=== PATIENT | male | born 1935 | race Caucasian/White ===

== ENCOUNTER 2017-05-01 10:35 | Emergency (ER) | payer MEDICARE, OTHER ==
--- NOTE | 2017-05-01 11:10 | ER Document Report ---
ED Medical Screen (RME) - General Chief Complaint: Chest Pain Stated Complaint: ABNORMAL LABS Time Seen by Provider: 05/01/17 10:59 Notes: 81-year-old male patient history coronary artery disease with bypass grafting. Has an EF about 35%. Previously had been on Eliquis with intermittent atrial fibrillation. Patient normally eats his last meal the day between 1 PM and 3 PM and goes to bed about 8 PM. Last night after laying down he noted substernal and epigastric chest discomfort and bad burning. He reports he took 2 Tums. It eased off some. At one point he felt his heart beating fast suggesting atrial fib, it seemed to improve when he sat up and walked around the room. He laid back down and the symptoms returned, about 10 PM he took an aspirin. Again when he would get up and walk around the symptoms would get better. He fell asleep about midnight woke up at 3:00 and was feeling better at that time. Some point after that he had some shortness of breath which she repeats that he gets from time to time. He was sent here from his primary care provider's office for cardiac evaluation. I have greeted and performed a rapid initial assessment of this patient. A comprehensive ED assessment and evaluation of the patient, analysis of test results and completion of the medical decision making process will be conducted by additional ED providers. TRAVEL OUTSIDE OF THE [place] IN LAST 30 DAYS: No - Related Data Allergies/Adverse Reactions: No Known Allergies Allergy (Verified 01/27/14 14:38) Past Medical History - Social History Chew tobacco use (# tins/day): No Frequency of alcohol use: Occasional Drug Abuse: None - Past Medical History Cardiac Medical History: Reports: Hx Atrial Fibrillation, Hx Heart Attack, Hx Hypertension Renal/ Medical History: Denies: Hx Peritoneal Dialysis Past Surgical History: Reports: Hx Cardiac Catheterization, Hx Cardiac Surgery - 4 way bypass - Immunizations Hx Diphtheria, Pertussis, Tetanus Vaccination: No Physical Exam - Vital signs Vitals: Resp 05/01/17 10:51 Course - Vital Signs Vital signs: Temp Pulse Resp BP Pulse Ox 05/01/17 10:51
[2017-05-01 11:29] LABS: ABSOLUTE BASOPHILS # (AUTO) 0.1 10^3/uL (0.0-0.2); ABSOLUTE EOSINOPHILS # (AUTO) 0.1 10^3/uL (0.0-0.6); ABSOLUTE LYMPHOCYTES (AUTO) 1.2 10^3/uL (0.5-4.7); ABSOLUTE MONOCYTES (AUTO) 0.7 10^3/uL (0.1-1.4); ABSOLUTE NEUT (AUTO) 5.7 10^3/uL (1.7-8.2); BASOPHILS % (AUTO) 0.7 % (0-2); EOSINOPHILS % (AUTO) 1.8 % (0-6); HEMATOCRIT 38.9 % (37.9-51.0); HEMOGLOBIN 12.6 g/dL (13.5-17.0); MEAN CORPUSCULAR HEMOGLOBIN 30.6 pg (27.0-33.4); MEAN CORPUSCULAR HGB CONC 32.3 g/dL (32.0-36.0); MEAN CORPUSCULAR VOLUME 95 fl (80-97); MONOCYTES % (AUTO) 8.7 % (3-13); PLATELET COUNT 226 10^3/uL (150-450); RED CELL DISTRIBUTION WIDTH 14.3 % (11.5-14.0); SEGMENTED NEUTROPHILS % (AUTO) 73.8 % (42-78); TOTAL CELLS COUNTED % (AUTO) 100 %; WHITE BLOOD COUNT 7.8 10^3/uL (4.0-10.5)
--- NOTE | 2017-05-01 11:32 | ER Document Report ---
ED General - General Chief Complaint: Chest Pain Stated Complaint: ABNORMAL LABS Time Seen by Provider: 05/01/17 10:59 TRAVEL OUTSIDE OF THE [place] IN LAST 30 DAYS: No - HPI Notes: Patient is an 81-year-old male with a history of hypothyroidism, quadruple bypass, and stent placement approximately 5-8 years ago, congestive heart failure with an ejection fraction around 35%, intermittent paroxysmal A. fib ( no longer on eliquis-takes baby aspirin daily) presents to the ED complaining of an epigastric chest discomfort and burning last evening. Patient states that his pain was intermittent until about midnight. Patient states that he would feel his A. fib backed up and then he would walk around which should resolve all of his symptoms. Patient states that his symptoms totally resolved around 3 AM. Patient states that since then he has been asymptomatic has been feeling well. Patient went to his primary care provider who sent him to the ED for a cardiac workup for further evaluation. Patient states that he is able to walk to and from his car and around the hospital without any development of pain or dyspnea on exertion. Patient's PCM is [facility] JUAN Alexander. Patient states that he is otherwise eating and drinking without any difficulties. He is urinating normally and having normal bowel movements. Denies any headache, fever, head injury, neck pain, changes in vision/speech/ mentation/hearing, URI, sore throat, current chest pain, palpitations, syncope, cough, shortness of breath, wheeze, dyspnea, abdominal pain, nausea/vomiting/ diarrhea, urinary retention, dysuria, hematuria, loss of control of bowel or bladder, numbness/tingling, saddle anesthesia, muscle paralysis/weakness, or rash. - Related Data Allergies/Adverse Reactions: No Known Allergies Allergy (Verified 01/27/14 14:38) Past Medical History - Social History Smoking Status: Former Smoker Chew tobacco use (# tins/day): No Frequency of alcohol use: Occasional Drug Abuse: None Family History: Reviewed & Not Pertinent Patient has suicidal ideation: No Patient has homicidal ideation: No - Past Medical History Cardiac Medical History: Reports: Hx Atrial Fibrillation, Hx Heart Attack, Hx Hypertension Renal/ Medical History: Denies: Hx Peritoneal Dialysis Past Surgical History: Reports: Hx Cardiac Catheterization, Hx Cardiac Surgery - 4 way bypass - Immunizations Hx Diphtheria, Pertussis, Tetanus Vaccination: No Hx Pneumococcal Vaccination: 12/05/12 Review of Systems - Review of Systems Notes: REVIEW OF SYSTEMS: CONSTITUTIONAL : Denies fever, chills, or sweats. Denies recent illness. EENT: Denies eye, ear, throat, or mouth pain or symptoms. Denies nasal or sinus congestion or discharge. Denies throat, tongue, or mouth swelling or difficulty swallowing. CARDIOVASCULAR: see hpi. Denies current chest pain. Denies palpitations or racing or irregular heart beat. Denies ankle edema. RESPIRATORY: Denies cough, cold, or chest congestion. Denies shortness of breath, difficulty breathing, or wheezing. GASTROINTESTINAL: Denies abdominal pain or distention. Denies nausea, vomiting , or diarrhea. Denies blood in vomitus, stools, or per rectum. Denies black, tarry stools. Denies constipation. GENITOURINARY: Denies difficulty urinating, painful urination, burning, frequency, blood in urine, or discharge. MUSCULOSKELETAL: Denies back or neck pain or stiffness. Denies joint pain or swelling. SKIN: Denies rash, lesions or sores. NEUROLOGICAL: Denies confusion or altered mental status. Denies passing out or loss of consciousness. Denies dizziness or lightheadedness. Denies headache. Denies weakness or paralysis or loss of use of either side. Denies problems with gait or speech. Denies sensory loss, numbness, or tingling. Denies seizures. PSYCHIATRIC: Denies anxiety or stress. Denies depression, suicidal ideation, or homicidal ideation. ALL OTHER SYSTEMS REVIEWED AND NEGATIVE. Dictation was performed using [employer] voice recognition software Physical Exam - Vital signs Vitals: Resp 16 05/01/17 10:51 - Notes Notes: PHYSICAL EXAMINATION: GENERAL: Well-appearing, well-nourished and in no acute distress. A&Ox4. Answers questions appropriately. Appears very comfortable and speaks in full sentences. HEAD: Atraumatic, normocephalic. EYES: Pupils equal round and reactive to light, extraocular movements intact, sclera anicteric, conjunctiva are normal. ENT: Nares patent and without discharge. oropharynx clear without exudates. No tonsilar hypertrophy or erythema. Moist mucous membranes. NECK: Normal range of motion, supple without lymphadenopathy Chest: no flail chest. equal rise/fall. non-tender. LUNGS: Breath sounds clear to auscultation bilaterally and equal. No wheezes rales or rhonchi. HEART: Regular rate and rhythm without murmurs, rubs, gallops. ABDOMEN: Soft, nontender, nondistended abdomen. No guarding, no rebound. No masses appreciated. Normal bowel sounds present. No CVA tenderness bilaterally. Musculoskeletal: FROM to passive/active. Strength 5+/5. Ree neg. No calf erythema or swelling. Extremities: No cyanosis, clubbing, or edema b/l. Peripheral pulses 2+. Capillary refill less than 3 seconds. NEUROLOGICAL: Cranial nerves grossly intact. Normal speech, normal gait. Normal sensory, motor exams PSYCH: Normal mood, normal affect. SKIN: Warm, Dry, normal turgor, no rashes or lesions noted. Course - Re-evaluation Re-evalutation: 05/01/17 15:53 Patient is an afebrile, well-hydrated, 81-year-old male who presents the ED with chest pain not otherwise specified. Vitals are stable. PE is otherwise unremarkable. Patient has remained asymptomatic since 0300 this morning when he woke up. Patient states that he is ready to go home. His CBC, CMP, cardiac enzymes 2/EKG 2, thyroid panel were unremarkable for any acute pathology. Patient did have a mildly elevated BNP without cardiopulmonary effusion or any lower extremity edema. I did try to discuss with his primary care provider's office and they do not have any previous lab records of a BNP being drawn. Patient does have a heart score of 4. I did review this case with Dr. Angelo. Patient's chest x-ray did reveal chronic COPD changes that cannot exclude a pneumonia to the right lower lung base, but patient has not had any fever or cough/cold symptoms. Patient has not been tachycardic and his oxygen saturation has remained over 95% on room air. Overall, I would like the patient to be admitted for chest pain observation due to his moderate cardiac risk. I did review this thoroughly with the patient states that he does not want to be admitted and would rather go home. Patient states that he has a production consultant in [place] that he can notify and follow-up with. Patient is aware of the risks and benefits of going home including potential heart attack and . At this time, I have a lower suspicion for any ACS, PE, pneumothorax , pericarditis, dissection, respiratory compromise, severe dehydration, sepsis, meningitis, or other systemic emergent condition at this time. Patient is aware that his condition can change from initial presentation and he needs to monitor symptoms closely and seek medical attention for any acute changes. Pt understands the strict return precautions. Recommend conservative measures for symptoms. Recheck with your PCM in 3-5 days. Schedule follow-up with your production consultant and consider outpatient stress testing. Return to the ED with any worsening/concerning symptoms otherwise as reviewed in discharge. Patient is in agreement. - Vital Signs Vital signs: Temp Pulse Resp BP Pulse Ox 16 05/01/17 10:51 - Laboratory Result Diagrams: 05/01/17 11:14 05/01/17 11:14 Laboratory results interpreted by me: 05/01/17 05/01/17 05/01/17 11:14 11:14 11:14 RBC 4.10 L Hgb 12.6 L RDW 14.3 H BUN 23 H NT-Pro-B Natriuret Pep 5440 H Discharge - Discharge Clinical Impression: Chest pain, unspecified Qualifiers: Chest pain type: unspecified Qualified Code(s): R07.9 - Chest pain, unspecified Condition: Stable Disposition: HOME, SELF-CARE Instructions: Chest Pain of Unclear Cause ([facility]) Additional Instructions: Maintain adequate fluid and food intake Low sodium/fat diet Monitor blood pressure closely Take home medications as directed Recheck with your production consultant next week, and consider outpatient stress testing Recheck with your PCM in 3-5 days Return to the ED with any worsening symptoms and/or development of fever, headache, chest pain, palpitations, syncope, shortness of breath, trouble breathing, abdominal pain, n/v/d, blood in stool/urine, loss of control of bowel /bladder, urinary retention, muscle weakness/paralysis, numbness/tingling, or other worsening symptoms that are concerning to you. Referrals: KAY HEREDIA PA-C [Primary Care Provider] - Follow up in 3-5 days CARDIOLOGY [Provider Group] - Follow up in 1 week
[2017-05-01 11:45] LABS: ALANINE AMINOTRANSFERASE 30 U/L (21-72); ALKALINE PHOSPHATASE 91 U/L (38-126); ANION GAP 10 (5-19); ASPARTATE AMINO TRANSFERASE 23 U/L (17-59); BILIRUBIN,DIRECT 0.2 mg/dL (0.0-0.4); BILIRUBIN,TOTAL 0.5 mg/dL (0.2-1.3); BLOOD UREA NITROGEN 23 mg/dL (7-20); CALCIUM 9.8 mg/dL (8.4-10.2); CARBON DIOXIDE 25 mmol/L (22-30); CHLORIDE 102 mmol/L (98-107); CREATINE KINASE 92 U/L (55-170); GLUCOSE 100 mg/dL (75-110); POTASSIUM 4.9 mmol/L (3.6-5.0); SODIUM 137.3 mmol/L (137-145); TOTAL PROTEIN 6.7 g/dL (6.3-8.2)
[2017-05-01 11:57] LABS: CREATINE KINASE MB 2.24 ng/mL (<4.55); TROPONIN I 0.022 ng/mL
--- NOTE | 2017-05-01 12:16 | RADIOLOGY REPORT (SQ) ---
EXAM DESCRIPTION: CHEST SINGLE VIEW COMPLETED DATE/TIME: 05/01/2017 11:37 am REASON FOR STUDY: Chest pain, shortness of breath COMPARISON: Chest x-ray and chest CT dated 11/16/2015 EXAM PARAMETERS: NUMBER OF VIEWS: One view. TECHNIQUE: Single frontal radiographic view of the chest acquired. RADIATION DOSE: NA LIMITATIONS: None. FINDINGS: LUNGS AND PLEURA: COPD. Increased interstitial densities in the bases poorly visualized o n previous plain films although clearly present on CT. Component of pneumonia on the right cannot be excluded. Lungs are otherwise clear. No effusions. MEDIASTINUM AND HILAR STRUCTURES: No masses. Contour normal. HEART AND VASCULAR STRUCTURES: Mild cardiomegaly. No evidence of failure. BONES: No acute findings. Old right 1st rib fracture. HARDWARE: Status post midline sternotomy. OTHER: No other significant finding. IMPRESSION: 1. COPD with chronic interstitial changes in the bases. Component of pneumonia in the right base cannot be excluded. 2. Mild cardiomegaly. TECHNICAL DOCUMENTATION: JOB ID: [id number] [employer]- All Rights Reserved
[2017-05-01 12:44] LABS: FREE T3 2.86 pg/mL (2.77-5.27); FREE T4 (FREE THYROXINE) 1.82 ng/dL (0.78-2.19)
--- NOTE | 2017-05-01 12:46 | EKG REPORT ---
SEVERITY:- ABNORMAL ECG - SINUS RHYTHM NONSPECIFIC T ABNORMALITIES, ANT-LAT LEADS : Confirmed by: Bryanna Elena MD 01-May-2017 12:46:10
[2017-05-01 12:58] LABS: THYROID STIMULATING HORMONE 1.49 uIU/mL (0.47-4.68)
[2017-05-01 16:52] VITALS: BP 143/97
--- NOTE | 2017-05-03 11:55 | EKG REPORT ---
SEVERITY:- ABNORMAL ECG - SINUS RHYTHM SINUS PAUSE/ARREST W/ SUPRAVENTRICULAR ESCAPE BORDERLINE LEFT AXIS DEVIATION BORDERLINE T ABNORMALITIES, ANT-LAT LEADS PROLONGED QT INTERVAL : Confirmed by: Bryanna Elena MD 03-May-2017 11:54:48
== END 2017-05-01 16:52 | disposition home or self-care (01) ==
LOC: ER 10:35
DX: R07.9 Chest pain, unspecified (principal); I48.91 Unspecified atrial fibrillation; E03.9 Hypothyroidism, unspecified; J44.9 Chronic obstructive pulmonary disease, unspecified; Z95.1 Presence of aortocoronary bypass graft; I25.2 Old myocardial infarction; Z87.891 Personal history of nicotine dependence; Z79.82 Long term (current) use of aspirin
CPT/HCPCS: 36415; 71045; 80053; 82550; 82553; 83880; 84439; 84443; 84481; 84484; 85025; 93005; 93010; 99285

== ENCOUNTER 2017-09-10 13:00 | Observation (INO) | payer MEDICARE, OTHER ==
[2017-09-10] MEDS ORDERED: ASPIRIN 81 MG TABLET, CHEWABLE PO ONE (13:33)
--- NOTE | 2017-09-10 14:06 | RADIOLOGY REPORT (SQ) ---
EXAM DESCRIPTION: CHEST SINGLE VIEW COMPLETED DATE/TIME: 09/10/2017 1:55 pm REASON FOR STUDY: chest pain COMPARISON: 11/16/2015 EXAM PARAMETERS: NUMBER OF VIEWS: One view. TECHNIQUE: Single frontal radiographic view of the chest acquired. RADIATION DOSE: NA LIMITATIONS: None. FINDINGS: LUNGS AND PLEURA: Mild chronic interstitial changes are present. There is increased opaci fication in the right lung base. A small right pleural effusion is suggested. MEDIASTINUM AND HILAR STRUCTURES: No masses. Contour normal. HEART AND VASCULAR STRUCTURES: Heart size is borderline. There is no alber pulmonary edema. BONES: No acute findings. HARDWARE: Sternotomy wires. OTHER: No other significant finding. IMPRESSION: Borderline cardiomegaly without CHF. Right pleural effusion. Possible right lower lobe pneumonia. TECHNICAL DOCUMENTATION: JOB ID: [id number] [employer]- All Rights Reserved Reading location - IP/workstation name: [email or web address]
[2017-09-10 14:33] LABS: ABSOLUTE BASOPHILS # (AUTO) 0.1 10^3/uL (0.0-0.2); ABSOLUTE EOSINOPHILS # (AUTO) 0.3 10^3/uL (0.0-0.6); ABSOLUTE LYMPHOCYTES (AUTO) 1.2 10^3/uL (0.5-4.7); ABSOLUTE MONOCYTES (AUTO) 0.6 10^3/uL (0.1-1.4); ABSOLUTE NEUT (AUTO) 2.9 10^3/uL (1.7-8.2); BASOPHILS % (AUTO) 1.3 % (0-2); EOSINOPHILS % (AUTO) 5.5 % (0-6); HEMOGLOBIN 12.1 g/dL (13.5-17.0); LYMPHOCYTES % (AUTO) 23.9 % (13-45); MEAN CORPUSCULAR HEMOGLOBIN 31.1 pg (27.0-33.4); MEAN CORPUSCULAR HGB CONC 33.5 g/dL (32.0-36.0); MEAN CORPUSCULAR VOLUME 93 fl (80-97); MONOCYTES % (AUTO) 12.1 % (3-13); PLATELET COUNT 198 10^3/uL (150-450); RED BLOOD COUNT 3.89 10^6/uL (4.35-5.55); SEGMENTED NEUTROPHILS % (AUTO) 57.2 % (42-78); TOTAL CELLS COUNTED % (AUTO) 100 %
[2017-09-10 14:36] LABS: INTERNATIONAL RATION (INR) 1.33; PROTHROMBIN TIME 17.2 SEC (11.4-15.4)
[2017-09-10 14:52] LABS: ALANINE AMINOTRANSFERASE 23 U/L (21-72); ALBUMIN 3.7 g/dL (3.5-5.0); ALKALINE PHOSPHATASE 101 U/L (38-126); ANION GAP 10 (5-19); ASPARTATE AMINO TRANSFERASE 21 U/L (17-59); BILIRUBIN,DIRECT 0.3 mg/dL (0.0-0.4); BILIRUBIN,TOTAL 0.8 mg/dL (0.2-1.3); BLOOD UREA NITROGEN 19 mg/dL (7-20); CARBON DIOXIDE 26 mmol/L (22-30); CHLORIDE 103 mmol/L (98-107); CREATINE KINASE 56 U/L (55-170); GLUCOSE 102 mg/dL (75-110); POTASSIUM 4.7 mmol/L (3.6-5.0); SODIUM 138.9 mmol/L (137-145); TOTAL PROTEIN 6.5 g/dL (6.3-8.2)
[2017-09-10 15:06] LABS: CREATINE KINASE MB 1.04 ng/mL (<4.55)
[2017-09-10 15:07] LABS: TROPONIN I < 0.012 ng/mL
--- NOTE | 2017-09-10 15:50 | ER Document Report ---
ED Medical Screen (RME) - General Mode of Arrival: Ambulatory Information source: Patient TRAVEL OUTSIDE OF THE [place] IN LAST 30 DAYS: No <BENNETT FOSTER - Last Filed: 09/10/17 15:50> <MARIZOL KIMBROUGH - Last Filed: 09/10/17 21:34> - General Chief Complaint: Chest Pain Stated Complaint: CHEST PAINS Time Seen by Provider: 09/10/17 13:33 Notes: Patient is an 80-year-old male who presents to the emergency department today with complaints of chest pain. Patient was cardioverted on September 02 secondary to atrial fibrillation. Patient is on Eliquis for his atrial fibrillation. I have greeted and performed a rapid initial assessment of this patient. A comprehensive ED assessment and evaluation of the patient, analysis of test results, and completion of the medical decision making process will be conducted by additional ED providers. Review of systems: Constitutional: No symptoms reported EENT: No symptoms reported Cardiovascular: Chest pain Respiratory: No symptoms reported Gastrointestinal: No symptoms reported Genitourinary: No symptoms reported Musculoskeletal: No symptoms reported Skin: No symptoms reported Hematologic/Lymphatic: No symptoms reported Neurological/Psychological: No symptoms reported Yes All other systems reviewed and negative PHYSICAL EXAM GENERAL: Alert, interacts well. No acute distress. HEAD: Normocephalic, atraumatic. EYES: Pupils equal, round, and reactive to light. Extraocular movements intact. ENT: Oral mucosa moist, tongue midline. NECK: Full range of motion. Supple. Trachea midline. LUNGS: Clear to auscultation bilaterally, no wheezes, rales, or rhonchi. No respiratory distress. HEART: Regular rate and rhythm. No murmurs, gallops, or rubs. ABDOMEN: Soft, non-tender. Non-distended. Bowel sounds present in all 4 quadrants. No guarding, rigidity, or rebound. EXTREMITIES: Moves all 4 extremities spontaneously. No edema, radial and dorsalis pedis pulses 2/4 bilaterally. No cyanosis. NEUROLOGICAL: Alert and oriented x3. Normal speech. PSYCH: Normal affect, normal mood. SKIN: Warm, dry, normal turgor. No rashes or lesions noted. (BENNETT FOSTER) - Related Data Allergies/Adverse Reactions: warfarin [From Coumadin] Allergy (Verified 09/10/17 13:01) Past Medical History - Social History Chew tobacco use (# tins/day): No Frequency of alcohol use: Occasional - Past Medical History Cardiac Medical History: Reports: Hx Atrial Fibrillation, Hx Heart Attack, Hx Hypertension Renal/ Medical History: Denies: Hx Peritoneal Dialysis Past Surgical History: Reports: Hx Cardiac Catheterization, Hx Cardiac Surgery - 4 way bypass - Immunizations Hx Diphtheria, Pertussis, Tetanus Vaccination: No <BENNETT FOSTER - Last Filed: 09/10/17 15:50> - Vital signs Vitals: Temp Pulse Resp BP Pulse Ox 97.6 F 51 L 20 126/69 H 98 09/10/17 13:04 09/10/17 13:04 09/10/17 13:04 09/10/17 13:04 09/10/17 13:04 Course - Laboratory Result Diagrams: 09/10/17 14:06 09/10/17 14:06 <BENNETT FOSTER - Last Filed: 09/10/17 15:50> - Laboratory Result Diagrams: 09/10/17 14:06 09/10/17 14:06 <MARIZOL KIMBROUGH - Last Filed: 09/10/17 21:34> - Vital Signs Vital signs: Temp Pulse Resp BP Pulse Ox 97.6 F 51 L 19 156/97 H 98 09/10/17 13:04 09/10/17 13:04 09/10/17 19:02 09/10/17 19:02 09/10/17 19:01 - Laboratory Laboratory results interpreted by me: 09/10/17 09/10/17 14:06 14:06 RBC 3.89 L Hgb 12.1 L Hct 36.0 L PT 17.2 H Doctor's Discharge <BENNETT FOSTER - Last Filed: 09/10/17 15:50> <MARIZOL KIMBROUGH - Last Filed: 09/10/17 21:34> - Discharge Clinical Impression: Chest pain Condition: Stable Disposition: ADMITTED OBSERVATION Scribe Documentation - Scribe Written by Eric:: Eric Mack, 09/10/2017 1552 acting as scribe for :: Valentine <BENNETT FOSTER - Last Filed: 09/10/17 15:50>
--- NOTE | 2017-09-10 17:15 | ER Document Report ---
ED Cardiac - General Chief Complaint: Chest Pain Stated Complaint: CHEST PAINS Time Seen by Provider: 09/10/17 13:33 Mode of Arrival: Ambulatory Information source: Patient Notes: This is an 81-year-old man with a history of coronary artery disease (CABG in 2005), atrial fibrillation (status post cardioversion September 02) who presents to the emergency room with intermittent chest discomfort. The patient states he will experience a sudden severe nonradiating sharp pain in the left chest which lasts anywhere from 3 seconds to 30 seconds and then goes away. It is happened a few times. It was not associated with exertion. He did go to his bottom presser's office today and was referred here. The patient is concerned that his atrial fibrillation is coming back. He denies any exertional chest pain, shortness of breath, near syncope. TRAVEL OUTSIDE OF THE [place] IN LAST 30 DAYS: No - HPI Patient complains to provider of: denies: Chest pain, Chest tightness, Palpitations, Shortness of breath, Other Use of: denies: Alcohol, Amphetamines, Bath salts, Caffeine, Cocaine, Decongestants, Other Chest pain location: No: Substernal, Axillary, Back, Pleuritic, Under breast, Other Quality of pain: Dull Chest pain radiation location: denies: Left jaw, Left arm, Left shoulder, Right jaw, Right arm, Right shoulder, Back, Neck, None Severity now: None Severity at worst: Moderate Pain level currently: 0 Chest pain precipitating factors: At Rest Cardiac risk factors: Hx TX Positive cardiac history: Yes Associated symptoms: denies: Fatigue, Palpitations Exacerbated by: Denies Relieved by: Nothing Similar symptoms previously: Yes Recently seen / treated by doctor: Yes - Related Data Allergies/Adverse Reactions: warfarin [From Coumadin] Allergy (Verified 09/10/17 13:01) Past Medical History - General Information source: Patient - Social History Smoking Status: Never Smoker Cigarette use (# per day): No Chew tobacco use (# tins/day): No Frequency of alcohol use: Occasional Drug Abuse: None Lives with: Family Family History: Reviewed & Not Pertinent Patient has suicidal ideation: No Patient has homicidal ideation: No - Past Medical History Cardiac Medical History: Reports: Hx Atrial Fibrillation, Hx Heart Attack, Hx Hypertension Renal/ Medical History: Denies: Hx Peritoneal Dialysis Past Surgical History: Reports: Hx Cardiac Catheterization, Hx Cardiac Surgery - 4 way bypass - Immunizations Hx Diphtheria, Pertussis, Tetanus Vaccination: No Hx Pneumococcal Vaccination: 12/05/12 Review of Systems - Review of Systems Constitutional: denies: Chills, Fever EENT: No symptoms reported Cardiovascular: See HPI Respiratory: No symptoms reported Gastrointestinal: No symptoms reported Genitourinary: No symptoms reported Male Genitourinary: No symptoms reported Musculoskeletal: No symptoms reported Skin: No symptoms reported Hematologic/Lymphatic: No symptoms reported Neurological/Psychological: No symptoms reported Physical Exam - Vital signs Vitals: Temp Pulse Resp BP Pulse Ox 97.6 F 51 L 20 126/69 H 98 09/10/17 13:04 09/10/17 13:04 09/10/17 13:04 09/10/17 13:04 09/10/17 13:04 Notes: Physical exam: GENERAL: Well-appearing 81-year-old man, alert and oriented 3, no acute distress HEAD: Atraumatic, normocephalic. EYES: Pupils equal round and reactive to light, extraocular movements intact, sclera anicteric, conjunctiva are normal. ENT: TMs normal, nares patent, oropharynx clear without exudates. Moist mucous membranes. NECK: Normal range of motion, supple without obvious mass or JVD. LUNGS: Breath sounds clear to auscultation bilaterally and equal. No wheezes rales or rhonchi. HEART: Regular rate and rhythm without murmurs, rubs or gallops. ABDOMEN: Soft, normoactive bowel sounds. No tenderness to palpation. No guarding, no rebound. No masses appreciated. EXTREMITIES: Normal range of motion, no pitting or edema. No clubbing or cyanosis. NEUROLOGICAL: Cranial nerves II through XII grossly intact. Normal speech, moving all extremities. PSYCH: Normal mood, normal affect. SKIN: Warm, Dry, normal turgor, no rashes or lesions noted. Course - Vital Signs Vital signs: Temp Pulse Resp BP Pulse Ox 97.5 F 72 16 152/87 H 85 L 09/10/17 22:00 09/10/17 22:00 09/10/17 22:00 09/10/17 22:00 09/10/17 22:00 - Laboratory Result Diagrams: 09/10/17 14:06 09/10/17 14:06 Laboratory results interpreted by me: 09/10/17 09/10/17 14:06 14:06 RBC 3.89 L Hgb 12.1 L Hct 36.0 L PT 17.2 H - Diagnostic Test Radiology reviewed: Image reviewed, Reports reviewed - Chest x-ray shows borderline cardiomegaly without CHF. There is a small pleural effusion and there is a question of a possible infiltrate (patient does not have any symptoms of pneumonia or any clinical findings of pneumonia). - EKG Interpretation by Me Rate: Bradycardia Rhythm: NSR - EKG shows sinus bradycardia with a ventricular rate of 52, no acute ST-T wave changes. Patient does state that his heart rate is normally in the upper 50s. Discharge - Discharge Clinical Impression: Chest pain Condition: Stable Disposition: ADMITTED OBSERVATION Admitting Provider: Hospitalist Unit Admitted: Telemetry
[2017-09-10] MEDS ORDERED: ASPIRIN 81 MG TABLET, CHEWABLE ONE (17:39)
[2017-09-10] MEDS ORDERED: GLUCAGON,HUMAN RECOMB 1 MG INJ SUBCUT PRN (18:18)
[2017-09-10] MEDS ORDERED: DEXTROSE 40% GEL 15 GM TUBE PO PRN ×2 (18:18)
[2017-09-10] MEDS ORDERED: MAG HYDROX/AL HYDROX/SIMETH SUSP 30 ML UDCUP PO PRN (18:18)
[2017-09-10] MEDS ORDERED: ACETAMINOPHEN 325 MG TABLET PO PRN (18:18)
[2017-09-10] MEDS ORDERED: DEXTROSE 50%-WATER 25 GM/50 ML DISP.SYRIN IV PRN ×2 (18:18)
--- NOTE | 2017-09-10 18:42 | PDOC H&P ---
History of Present Illness Admission Date/PCP: 09/10/17 17:59 ADI ANGELES Patient complains of: Chest pain History of Present Illness: TIFFANIE JIMENEZ is a 81 year old male with known coronary artery disease status post CABG about 13 years ago. He had a cardioversion about 5 days ago. Starting yesterday he developed midsternal chest pain, possibly worse with exertion associated with shortness of breath. He went to his supervisor salvage's office who recommended that he come to the emergency department. Past Medical History Cardiac Medical History: Reports: Atrial Fibrillation - Status post cardioversion about 5 days ago, Coronary Artery Disease - Status post CABG about 13 years ago, Myocardial Infarction, Hypertension Past Surgical History Past Surgical History: Reports: Cardiac Catheterization, Coronary Artery Bypass Graft Social History Information Source: Patient Smoking Status: Never Smoker Frequency of Alcohol Use: Social Hx Recreational Drug Use: No Hx Prescription Drug Abuse: No - Advance Directive Resuscitation Status: Full Code Family History Family History: Reviewed & Not Pertinent Parental Family History Reviewed: Yes Children Family History Reviewed: No Sibling(s) Family History Reviewed.: No Medication/Allergy Home Medications: Amiodarone HCl [Pacerone] 100 mg PO DAILY 09/10/17 Apixaban [Eliquis 5 mg Tablet] 5 mg PO BID 09/10/17 Atorvastatin Calcium [Lipitor 80 mg Tablet] 80 mg PO QHS 09/10/17 Enalapril Maleate [Vasotec 2.5 Mg Tablet] 2.5 mg PO DAILY 09/10/17 Ferrous Sulfate [Iron] 325 mg PO DAILY 09/10/17 Magnesium Oxide [Magnesium] 400 mg PO DAILY 09/10/17 Metoprolol Tartrate [Lopressor 25 mg Tablet] 25 mg PO Q12 09/10/17 Multivitamin [Tab-A-Clarita] 1 tab PO DAILY 09/10/17 Allergies/Adverse Reactions: warfarin [From Coumadin] Allergy (Verified 09/10/17 13:01) Review of Systems All systems: reviewed and no additional remarkable complaints except as stated Physical Exam Vital Signs: Temp Pulse Resp BP Pulse Ox 97.6 F 51 L 20 126/69 H 99 09/10/17 13:04 09/10/17 13:04 09/10/17 13:04 09/10/17 13:04 09/10/17 13:33 General appearance: PRESENT: no acute distress Respiratory exam: PRESENT: clear to auscultation ramin Cardiovascular exam: PRESENT: RRR GI/Abdominal exam: PRESENT: soft Neurological exam: PRESENT: alert Psychiatric exam: PRESENT: appropriate affect Skin exam: PRESENT: warm Results Impressions: Chest X-Ray 09/10/17 13:33 IMPRESSION: Borderline cardiomegaly without CHF. Right pleural effusion. Possible right lower lobe pneumonia. Assessment & Plan - Diagnosis (1) Chest pain of uncertain etiology Is this a current diagnosis for this admission?: Yes Plan: Workup thus far has been negative. Will monitor on telemetry, get serial cardiac enzymes, put him in for a Lexiscan Cardiolite in the morning, and consult cardiology to see if they would like to do any other workup. (2) CAD (coronary artery disease) Is this a current diagnosis for this admission?: Yes Plan: History of CABG 13 years ago. Last stress test around 2 years ago. (3) Afib Is this a current diagnosis for this admission?: Yes Plan: Currently in sinus rhythm on amiodarone. Continue (4) Atrial fibrillation status post cardioversion Is this a current diagnosis for this admission?: Yes
[2017-09-10] MEDS ORDERED: ATORVASTATIN CALCIUM 80 MG TABLET PO SCH (22:00)
[2017-09-10] MEDS: FAMOTIDINE 20 MG TABLET PO SCH (22:07)
[2017-09-10] MEDS: APIXABAN 5 MG TABLET PO SCH (22:08)
[2017-09-10] MEDS: METOPROLOL TARTRATE 25 MG TABLET PO SCH (22:30)
--- NOTE | 2017-09-10 22:56 | PDOC CONSULTATION ---
Consultation Consult Date: 09/10/17 Attending physician:: DAPHNIE SANTOYO Consult reason:: CP History of Present Illness Admission Date/PCP: 09/10/17 17:59 ADI ANGELES Patient complains of: Chest pain History of Present Illness: TIFFANIE JIMENEZ is a 81 year old male with known coronary artery disease status post CABG about 13 years ago. He had a cardioversion about 5 days ago. Starting yesterday he developed midsternal chest pain, possibly worse with exertion associated with shortness of breath. He went to his hearing aid fitter's office who recommended that he come to the emergency department. This is reviewed and confirmed. Patient has noted some increased shortness of breath. He claims that he had a stent placed after his bypass surgery but subsequently did fine. He claims that he has an appointment to be seen by his primary care hearing aid fitter sometimes within the next 2 weeks. Patient denied having any recent stress test or echocardiogram. Past Medical History Cardiac Medical History: Reports: Atrial Fibrillation - Status post cardioversion about 5 days ago, Coronary Artery Disease - Status post CABG about 13 years ago, Myocardial Infarction, Hypertension Past Surgical History Past Surgical History: Reports: Cardiac Catheterization, Coronary Artery Bypass Graft, Coronary Stent Social History Information Source: Patient Smoking Status: Former Smoker Frequency of Alcohol Use: Social Hx Recreational Drug Use: No Hx Prescription Drug Abuse: No - Advance Directive Resuscitation Status: Full Code Surrogate healthcare decision maker:: Patient's is the surrogate decision-maker Family History Family History: Reviewed & Not Pertinent Parental Family History Reviewed: Yes Children Family History Reviewed: Yes Sibling(s) Family History Reviewed.: Yes - No family history of premature coronary artery disease or sudden cardiac in the immediate family members Medication/Allergy Home Medications: Amiodarone HCl [Pacerone 100 mg Tablet] 100 mg PO DAILY 09/10/17 Apixaban [Eliquis 5 mg Tablet] 5 mg PO BID 09/10/17 Atorvastatin Calcium [Lipitor 80 mg Tablet] 80 mg PO QHS 09/10/17 Enalapril Maleate [Vasotec 2.5 mg Tablet] 2.5 mg PO DAILY 09/10/17 Ferrous Sulfate [Iron] 325 mg PO DAILY 09/10/17 Magnesium Oxide [Magnesium] 400 mg PO DAILY 09/10/17 Metoprolol Tartrate [Lopressor 25 mg Tablet] 25 mg PO Q12 09/10/17 Multivitamin [Tab-A-Clarita] 1 tab PO DAILY 09/10/17 Allergies/Adverse Reactions: warfarin [From Coumadin] Allergy (Verified 09/10/17 13:01) Review of Systems Review of Systems: Please see history of present illness and past medical history as wall. Constitutional: No fever or chills reported. Head : No recent chronic headaches, recent head injury. Eyes: No recent eye pain, diplopia, redness, discharge, acute visual changes. Ears: No recent chronic ear pain, acute hearing loss, ear discharge. Oral cavity: No recent ulcerations, bleeding, oral cavity discomfort. Neck: No recent acute neck pain reported. Hematologic: No recent easy bruising or bleeding. Lymphatic: No recent lymph node enlargement reported. Cardiovascular system review: See history of present illness. Respiratory system review: No hemoptysis or blood clots in the lungs reported. Mild Shortness of breath on exertion Gastrointestinal system review: Negative for any recent acute hematemesis, melena. Genitourinary system review: No recent acute or chronic hematuria, flank pain, UTI etc. reported. Skin system review: Negative for any recent abnormal bruising, no rash, no pruritus reported. Neurologic: No prior history of strokes, mini strokes, seizure disorder. Psychologic: No history of major psychosis or major depression reported. Musculoskeletal: Minor aches and pains reported. No acute joint swelling reported. Endocrine: No recent polyuria, polydipsia, recent heat or cold intolerance. Physical Exam Vital Signs: Temp Pulse Resp BP Pulse Ox 97.6 F 51 L 19 156/97 H 98 09/10/17 13:04 09/10/17 13:04 09/10/17 19:02 09/10/17 19:02 09/10/17 19:01 Exam: GENERAL: well-nourished and in no acute distress. Alert and oriented x3 HEAD: Atraumatic, normocephalic. EYES: Pupils equal round and reactive to light, extraocular movements intact, sclera anicteric, conjunctiva are normal. ENT: TMs normal, nares patent, oropharynx clear without exudates. Moist mucous membranes. No oral ulcerations or bleeding gums noted NECK: supple without lymphadenopathy. Trachea is central. No cervical or axillary lymphadenopathy noted. Carotids are 2+, JVD WNL LUNGS: Respiration seems nonlabored, no significant accessory muscle action noted. Breath sounds clear to auscultation bilaterally and equal noted. No wheezes rales or rhonchi noted. No significant dullness noted on percussion. CHEST: Palpation of the chest wall shows no significant chest wall tenderness. HEART: [place] CLERK RATING, No PSH, 2/6 SILVER aortic area, 1/6 leon systolic murmur mitral area , no rubs, no gallops. ABDOMEN: Soft, no significant tenderness appreciated, normoactive bowel sounds. No guarding, no rebound. No rigidity noted . No masses appreciated. EXTREMITIES: Pedal pulses are 1-2+, no calf tenderness noted. No clubbing or cyanosis. negative pedal edema noted NEUROLOGICAL: Focused neurological exam showed no significant neurologic deficit. Normal speech, no focal weakness appreciated. PSYCH: Normal mood, normal affect. Judgment and insight within normal limits. SKIN: No significant ecchymosis, skin is noted to be warm. MUSCULOSKELETAL EXAM: No significant acute joint swelling noted. Results EKG Comments: Sinus rhythm, Q waves in lead III and aVF suggestive of prior inferior NC Impressions: Chest X-Ray 09/10/17 13:33 IMPRESSION: Borderline cardiomegaly without CHF. Right pleural effusion. Possible right lower lobe pneumonia. Assessment & Plan - Diagnosis (1) CAD (coronary artery disease) Qualifiers: Coronary Disease-Associated Artery/Lesion type: unspecified vessel or lesion type [place] vs. transplanted heart: [place] heart Associated angina: angina presence unspecified Qualified Code(s): I25.10 - Atherosclerotic heart disease of [place] coronary artery without angina pectoris Is this a current diagnosis for this admission?: Yes (2) Chest pain of uncertain etiology Is this a current diagnosis for this admission?: Yes (3) Atrial fibrillation status post cardioversion Is this a current diagnosis for this admission?: Yes - Notes Notes: NST Chest pain: Patient has some typical and atypical features of chest pain. Cardiac enzymes so far has been negative. Electrocardiogram did not show any definitive ST segment changes. Multiple differential diagnoses exist in this patient. In descending order of probability this includes underlying coronary artery disease, gastroesophageal reflux, musculoskeletal pain, referred pain from elsewhere, anxiety panic disorder etc.Patient has significant cardiac risk factors and known CAD with prior CABG and stent placement, which indicates that there is a intermediate probability of chest discomfort coming from underlying CAD. Feel that it would need to be evaluated further. Discussed evaluation to assess this. In this regard risk benefits of nuclear stress test and other alternative processes were discussed in detail. The patient prefers to undergo nuclear stress test. The small risk of radiation, myocardial infarction, , cardiac arrhythmias, respiratory distress etc. were discussed. Patient understood the risks and gave informed consent. Nuclear stress test was therefore scheduled. Coronary artery disease: Patient medical regimen reviewed and is noted to be satisfactory. Will consider adding Ranexa to the regimen if patient has significant ischemia. Atrial fibrillation: Patient is status post cardioversion 5 days ago. Continue current dose of amiodarone and continue chronic anticoagulation. - Time Time Spent: 30 to 50 Minutes - CODE STATUS was discussed, patient remains full code. Surrogate decision-maker patient's . Multiple medical problems were addressed. More than 50% of the time spent coordinating care, discussing management plans with involved caregivers. Management plans discussed with involved personnels. Medical decision making was of moderate to high complexity , patient's has multiple comorbidities. Medications reviewed and adjusted accordingly: Yes
--- NOTE | 2017-09-10 22:57 | EKG REPORT ---
SEVERITY:- ABNORMAL ECG - SINUS RHYTHM FIRST DEGREE AV BLOCK : Confirmed by: Bryanna Elena MD 10-Sep-2017 22:56:53
[2017-09-11 05:50] LABS: CHOLESTEROL 135.35 mg/dL (0-200); TRIGLYCERIDES 72 mg/dL (<150)
[2017-09-11 06:01] LABS: DIRECT LDL 54 mg/dL (<100)
[2017-09-11] MEDS ORDERED: (PENDING PHARMACY ID) (Magnesium Oxide [Magnesium] 400 MG) PO SCH (10:00)
[2017-09-11] MEDS ORDERED: MULTIVITAMIN TABLET PO SCH (10:00)
[2017-09-11] MEDS ORDERED: MAGNESIUM OXIDE 400 MG TABLET PO SCH (10:00)
[2017-09-11] MEDS ORDERED: AMIODARONE HCL 200 MG TABLET PO SCH (10:00)
[2017-09-11] MEDS ORDERED: ENALAPRIL MALEATE 2.5 MG TABLET PO SCH (10:00)
[2017-09-11] MEDS ORDERED: (PENDING PHARMACY ID) (Amiodarone Hcl [Pacerone 100 Mg Tablet] 100 MG) PO SCH (10:00)
[2017-09-11] MEDS ORDERED: FERROUS SULFATE 325 MG TABLET PO SCH (10:00)
[2017-09-11] MEDS: METOPROLOL TARTRATE 25 MG TABLET PO SCH (12:42)
[2017-09-11] MEDS: FAMOTIDINE 20 MG TABLET PO SCH (12:44)
[2017-09-11] MEDS: APIXABAN 5 MG TABLET PO SCH (12:57)
--- NOTE | 2017-09-11 13:37 | DRAGON STRESS TEST REPORT ---
INTRAVENOUS LEXISCAN CARDIOLITE STRESS TEST USING SINGLE PHOTON EMMISION COMPUTERIZED TOMOGRAPHIC. DATE OF PROCEDURE: September 11, 2017, INDICATION : Chest pain, known CAD CARDIAC RISK FACTORS: Diabetes, hypertension, dyslipidemia RESTING EKG: Sinus rhythm, no significant baseline ST-T wave changes noted. STRESS EKG: No significant ST segment changes noted with LexiScan bolus REASON FOR TERMINATION: Protocol. PROCEDURE REPORT: Baseline heart rate 62 beats per minute with blood pressure of 132/93. Patient had no significant complaints. Patient was bolused with Lexiscan 0.4 mg intravenously followed by saline bolus. Heart rate at 2 minutes post bolus 67 with a blood pressure of 122/81. 3 minutes post bolus heart rate 65 with blood pressure of 118/69. No significant EKG changes were noted. Patient had no significant complaints during the procedure or postprocedure. CONCLUSIONS: Normal EKG and hemodynamic response to IV LexiScan. NUCLEAR DATA: At rest the patient was given 13.39 millicuries of technetium 99 sestamibi injected intravenously. As per protocol rest gated SPECT images were obtained. On day of stress test, the patient was given intravenous LexiScan at a dose of 0.4 mg in 5 mL intravenously, followed by flush with normal saline. Subsequently the stress dose of 42.0 millicuries of technetium 99 sestamibi was injected intravenously. As per protocol stress gated images were obtained. NUCLEAR INTERPRETATION: Both raw and processed data were used for interpretation. Visual, qualitative, computer-generated quantitative data was used. There was good myocardial uptake of technetium compound. Motion artifact and soft tissue attenuations were noted. Increased visceral uptake was noted. No definitive areas of transient perfusion defect noted, predominantly severe fixed defect noted involving the inferolateral wall of the left ventricle with minimal area of surrounding ischemia, SDS of 2 therefore likely to be not significant.. EKG gated imaging showed LV EF at 31 %, rest and stress gated EF similar visually. T. I D. ratio was 1.32. Although in the borderline abnormal range computer miguel, visually it did not look significant. Gated images shows inferolateral wall akinesia. Lung heart ratio noted to be within normal limits 0.44. No significant extracardiac and abnormal radiotracer activities were noted. RV free wall uptake was noted to be WNL. IMPRESSION: Also refer to comments under nuclear interpretation. Also test results needs to be interpreted in the context of pretest probability. 1. No definitive areas of transient perfusion defect noted. 2. Severe fixed defect noted in the inferolateral wall of the left ventricle with minimal surrounding transient perfusion defect. SDS of 2 therefore unlikely to be significant. 3. EKG gated imaging shows left ventricular ejection fraction of approx. 31 %. Inferolateral wall akinesia noted. 4. Clinical correlation requested as occasionally single vessel disease or balanced ischemia could be missed. In approximately 10% of the cases Lexiscan may not cause adequate vasodilatory stress. RECOMMENDATIONS: Aggressive risk factor modification and medical management. Further evaluation may be needed if continued symptoms or other high risk indicators are noted on clinical evaluation. If patient continues with recurrent symptoms, in spite of maximal medical therapy, consider referral for heart catheterization. Close cardiology follow-up is also recommended. Clinical correlation with echocardiogram derived ejection fraction. Inability to exercise by itself can lead to increased cardiovascular event risks. Consider cardiology consultation and or follow-up if clinically indicated. I am available for cardiology evaluation and consultation if requested by the golf course mechanic, unless patient already has a immigration investigator. SIMRAN
[2017-09-11] MEDS ORDERED: REGADENOSON INJ 0.4 MG/5 ML DISP.SYRIN IV ONE (16:25)
[2017-09-11 16:33] VITALS: BP 152/87
--- NOTE | 2017-09-11 18:00 | XCELERA REPORT ---
[address] [address] Transthoracic Echocardiogram Report Name: TIFFANIE JIMENEZ Age: 81 yrs Gender: Male : 1935 Patient Status: Inpatient Patient Location: [address] [place] [address] Study Date: 09/11/2017 03:54 PM Height: 74 in Weight: 189 lb BSA: 2.1 m2 Procedure: A complete two-dimensional transthoracic echocardiogram was performed (2D, M-mode, spectral and color flow Doppler). The study was technically adequate with some images being suboptimal in quality. Reason For Study: No EF on nuclear stress test and CAD Ordering Physician: SHELBY NATH Performed By: Salena Hurt Interpretation Summary Left ventricular systolic function is moderately reduced. The Ejection Fraction estimate is 35-40% The left ventricle is mildly dilated. There is normal left ventricular wall thickness. Doppler measurements suggest pseudonormalized left ventricular relaxation, which is associated with grade II/IV or mild to moderate diastolic dysfunction There is posterior wall akinesis There is inferior wall akinesis The right ventricular systolic function is normal. The right atrium is normal. The left atrium is moderately dilated. There is no mitral valve stenosis. There is a mild amount of mitral regurgitation There is no aortic valve stenosis No aortic regurgitation is present. There is a mild amount of tricuspid regurgitation There is mild to moderate pulmonary hypertension by echo Right ventricular systolic pressure is estimated to be elevated at 40- 50mmHg. The aortic root is not well visualized but is probably normal size. The inferior vena cava appeared normal and decreased > 50% with respiration (RAP 5-10 mmHg) There is no pericardial effusion. MMode/2D Measurements & Calculations RVDd: 3.9 cm LVIDd: 6.5 cm FS: 14.4 % EPSS: 1.5 cm IVSd: 0.84 cm LVIDs: 5.6 cm EDV(Teich): 219.4 ml LVPWd: 0.82 cm ESV(Teich): 153.8 ml EF(Teich): 29.9 % Ao root diam: 3.1 cm Ao root area: 7.5 cm2 LA dimension: 4.5 cm Doppler Measurements & Calculations MV E max elie: MV P1/2t max elie: Ao V2 max: LV V1 max P.5 cm/sec 116.5 cm/sec 92.8 cm/sec 1.5 mmHg MV A max elie: MV P1/2t: 55.1 msec Ao max PG: LV V1 max: 50.3 cm/sec MVA(P1/2t): 4.0 cm2 3.4 mmHg 62.1 cm/sec MV E/A: 2.3 MV dec slope: 618.9 cm/sec2 MV dec time: 0.18 sec PA V2 max: PI end-d elie: TR max elie: 69.6 cm/sec 161.5 cm/sec 301.3 cm/sec PA max P.9 mmHg TR max P.3 mmHg Left Ventricle The left ventricle is mildly dilated. There is normal left ventricular wall thickness. Left ventricular systolic function is moderately reduced. The Ejection Fraction estimate is 35-40%. Doppler measurements suggest pseudonormalized left ventricular relaxation, which is associated with grade II/IV or mild to moderate diastolic dysfunction. There is posterior wall akinesis. There is inferior wall akinesis. Right Ventricle The right ventricle is grossly normal size. There is normal right ventricular wall thickness. The right ventricular systolic function is normal. Atria The right atrium is normal. The left atrium is moderately dilated. Interarterial septum not well visualized and not well dopplered. Cannot comment on ASD/PFO presence. Mitral Valve The mitral valve is grossly normal. There is no mitral valve stenosis. There is a mild amount of mitral regurgitation. Aortic Valve The aortic valve is grossly normal. There is no aortic valve stenosis. No aortic regurgitation is present. Tricuspid Valve The tricuspid valve is not well visualized, but is grossly normal. There is no tricuspid stenosis. There is a mild amount of tricuspid regurgitation. There is mild to moderate pulmonary hypertension by echo. Right ventricular systolic pressure is estimated to be elevated at 40-50mmHg. Pulmonic Valve The pulmonic valve is not well visualized. Great Vessels The aortic root is not well visualized but is probably normal size. The inferior vena cava appeared normal and decreased > 50% with respiration (RAP 5-10 mmHg). Effusions There is no pericardial effusion. : SHELBY NATH > Shelby Nath
--- NOTE | 2017-09-11 20:13 | PDOC PROGRESS REPORT ---
Subjective Progress Note for:: 09/11/17 Subjective:: Nuclear stress test procedure was explained to the patient in detail. Risk benefits were discussed and informed consent was obtained. Patient did undergo a nuclear stress test without any complications. In the afternoon stress test results were discussed with him. Patient seems to be doing better with gradual improvement. Pt is denying any chest arm or neck discomfort. Patient denying any PND, orthopnea. Patient denied any sustained palpitations, dizziness, syncope, near syncope. Patient denying any fever chills. Patient denying any other significant discomfort. Patient is maintaining sinus rhythm. Review of systems: Rest review of systems negative. Medications: Medications have been reviewed. Reason For Visit: POSS ACS, KNOWN CAD Physical Exam Vital Signs: Temp Pulse Resp BP Pulse Ox 97.8 F 52 L 16 152/87 H 100 09/11/17 16:32 09/11/17 16:32 09/11/17 16:32 09/11/17 16:32 09/11/17 16:32 Intake & Output 09/10/17 09/11/17 09/12/17 06:59 06:59 06:59 Intake Total 540 Balance 540 Weight 86 kg Exam: GENERAL: well-nourished and in no acute distress. Alert and oriented x3 HEAD: Atraumatic, normocephalic. EYES: Pupils equal round and reactive to light, extraocular movements intact, sclera anicteric, conjunctiva are normal. ENT: TMs normal, nares patent, oropharynx clear without exudates. Moist mucous membranes. No oral ulcerations or bleeding gums noted NECK: supple without lymphadenopathy. Trachea is central. No cervical or axillary lymphadenopathy noted. Carotids are 2+, JVD WNL LUNGS: Respiration seems nonlabored, no significant accessory muscle action noted. Breath sounds clear to auscultation bilaterally and equal noted. No wheezes rales or rhonchi noted. No significant dullness noted on percussion. CHEST: Palpation of the chest wall shows no significant chest wall tenderness. HEART: [place] [employer], No PSH, 1/6 SILVER aortic area, 1/6 leon systolic murmur mitral area, no rubs, no gallops. ABDOMEN: Soft, no significant tenderness appreciated, normoactive bowel sounds. No guarding, no rebound. No rigidity noted . No masses appreciated. EXTREMITIES: Pedal pulses are 1-2+, no calf tenderness noted. No clubbing or cyanosis. negative pedal edema noted NEUROLOGICAL: Focused neurological exam showed no significant neurologic deficit. Normal speech, no focal weakness appreciated. PSYCH: Normal mood, normal affect. Judgment and insight within normal limits. SKIN: No significant ecchymosis, skin is noted to be warm. MUSCULOSKELETAL EXAM: No significant acute joint swelling noted. Results Laboratory Results: 09/11/17 04:53 Triglycerides 72 Cholesterol 135.35 LDL Cholesterol Direct 54 VLDL Cholesterol 14.0 HDL Cholesterol 58 Impressions: Chest X-Ray 09/10/17 13:33 IMPRESSION: Borderline cardiomegaly without CHF. Right pleural effusion. Possible right lower lobe pneumonia. Assessment & Plan - Diagnosis (1) Chest pain of uncertain etiology Is this a current diagnosis for this admission?: Yes (2) CAD (coronary artery disease) Qualifiers: Coronary Disease-Associated Artery/Lesion type: unspecified vessel or lesion type [place] vs. transplanted heart: [place] heart Associated angina: angina presence unspecified Qualified Code(s): I25.10 - Atherosclerotic heart disease of [place] coronary artery without angina pectoris Is this a current diagnosis for this admission?: Yes (3) Atrial fibrillation status post cardioversion Is this a current diagnosis for this admission?: Yes - Notes Notes: Chest pain of uncertain etiology: So far cardiac enzymes 2 has been completely negative. Patient did undergo a nuclear stress test which predominantly shows a severe fixed defect in the inferolateral wall of the left ventricle. At this point medical management was recommended. Patient has been chest pain-free on ambulation. It is felt that patient could be discharged home with follow-up with his primary care stem cleaning machine feeder. Patient has a cardiology follow-up within the next 1 week. Coronary artery disease: Symptomatically stable: Patient medical regimen was reviewed and is noted to be very satisfactory. Atrial fibrillation status post cardioversion: Continue amiodarone for the time being. Further adjustment can be made by his primary care stem cleaning machine feeder. LV systolic dysfunction: 2D echo shows moderate LV systolic dysfunction. These results were reviewed with the patient. - Time Time with patient: Greater than 35 minutes - Significant time spent discussing results of nuclear stress test, 2D echo results, medical regimen. Discussed that he should follow-up with his primary care stem cleaning machine feeder and legal specialist. Medications reviewed and adjusted accordingly: Yes
[2017-09-11] MEDS ORDERED: RANOLAZINE 500 MG TAB.SR.12H PO SCH (22:00)
== END 2017-09-11 17:05 | disposition home or self-care (01) ==
LOC: ER 13:00 → EH 17:59 → INTOOBSV 17:59 → 4S 20:25
PROVIDERS: ADMIT Internal Medicine; ATTEND Internal Medicine
DX: R07.9 Chest pain, unspecified (principal); I25.10 Atherosclerotic heart disease of native coronary artery without angina pectoris; I25.2 Old myocardial infarction; I48.91 Unspecified atrial fibrillation; I10 Essential (primary) hypertension; R00.1 Bradycardia, unspecified; I51.89 Other ill-defined heart diseases; Z95.1 Presence of aortocoronary bypass graft; Z79.899 Other long term (current) drug therapy; Z79.02 Long term (current) use of antithrombotics/antiplatelets; Z98.890 Other specified postprocedural states; R06.02 Shortness of breath; Z87.891 Personal history of nicotine dependence
CPT/HCPCS: 93005; 99285; 36415 ×2; 82553; 82550; 85025; 85610; 80053; 84484; 80061; 93306; 93017; 71045; 78452; 93010; G0378 ×3; A9500; A9270 ×12; J2785; J3490 ×2; Q9969

== ENCOUNTER 2018-01-17 09:53 | Emergency (ER) | payer MEDICARE, OTHER ==
--- NOTE | 2018-01-17 10:19 | ER Document Report ---
ED Medical Screen (RME) - General Chief Complaint: Chest Pain > 30 Stated Complaint: CHEST PAIN THIS MORNING Time Seen by Provider: 01/17/18 10:11 Notes: Patient is a 82-year-old male with atrial fibrillation and CAD status post CABG that presents to the emergency department for chief complaint of chest pain. Patient reports he started having chest pains this morning around 8 AM, while he was out to get breakfast, he went home, and the pains came back, then he took his heart rate and it was actually elevated. This concerned him so he came to the emergency department, he was previously on amiodarone, after ablation, this was discontinued several weeks ago, because he was having bradycardia at that time. ROS: Unless otherwise stated in this report the patient's positive and negative responses for review of systems for constitutional, eyes, ENT, cardiovascular, respiratory, gastrointestinal, neurological, genitourinary, musculoskeletal, and integumentary systems and related systems to the presenting problem are either as stated in the HPI or were not pertinent or were negative for the symptoms and/or complaints related to the presenting medical problem. PHYSICAL EXAMINATION: Vital signs reviewed. GENERAL: Well-appearing, well-nourished and in no acute distress. HEAD: Atraumatic, normocephalic. EYES: Pupils equal round extraocular movements intact, conjunctiva are normal. ENT: Nares patent NECK: Normal range of motion CV: Heart rate tachycardic, regular rhythm, no audible murmur LUNGS: No respiratory distress Musculoskeletal: Normal range of motion NEUROLOGICAL: Normal speech PSYCH: Normal mood, normal affect. MDM: Patient seen and examined for rapid initial assessment. Vital signs reviewed. EKG reviewed demonstrates sinus tachycardia, no STEMI. A comprehensive ED assessment and evaluation of the patient, analysis of test results and completion of the medical decision making process will be conducted by additional ED providers. *Note is created using voice recognition software and may contain spelling, syntax or grammatical errors. TRAVEL OUTSIDE OF THE [place] IN LAST 30 DAYS: No - Related Data Allergies/Adverse Reactions: warfarin [From Coumadin] Allergy (Verified 09/10/17 13:01) Past Medical History - Past Medical History Cardiac Medical History: Reports: Hx Atrial Fibrillation - Status post cardioversion about 5 days ago, Hx Coronary Artery Disease - Status post CABG about 13 years ago, Hx Heart Attack, Hx Hypertension Renal/ Medical History: Denies: Hx Peritoneal Dialysis Past Surgical History: Reports: Hx Cardiac Catheterization, Hx Cardiac Surgery - 4 way bypass, Hx Coronary Artery Bypass Graft, Hx Coronary Stent - Immunizations Hx Diphtheria, Pertussis, Tetanus Vaccination: No Physical Exam - Vital signs Vitals: Temp Pulse Resp BP Pulse Ox 97.3 F 112 H 12 129/87 H 98 01/17/18 10:04 01/17/18 10:04 01/17/18 10:04 01/17/18 10:04 01/17/18 10:04 Course - Vital Signs Vital signs: Temp Pulse Resp BP Pulse Ox 97.3 F 112 H 12 129/87 H 98 01/17/18 10:04 01/17/18 10:04 01/17/18 10:04 01/17/18 10:04 01/17/18 10:04 Doctor's Discharge - Discharge Referrals: CANDACE HIGUERA FNP [Primary Care Provider] - Follow up as needed
--- NOTE | 2018-01-17 10:50 | ER Document Report ---
ED Cardiac - General Chief Complaint: Chest Pain > 30 Stated Complaint: CHEST PAIN THIS MORNING Time Seen by Provider: 01/17/18 10:11 TRAVEL OUTSIDE OF THE [place] IN LAST 30 DAYS: No - HPI Notes: Patient is a 82-year-old male that presents to the emergency department for chief complaint of chest pain and tachycardia. Patient reports a burning substernal chest pain that started at 8 AM this morning. His pain was constant until about 1030. The pain did not radiate. He reports associated nausea. He states he took his blood pressure at home and noticed that his heart rate was elevated at 109. He has a history of atrial fibrillation with ablation. He also has history of CABG. He is currently taking Eliquis for his A. fib. Patient states that his symptoms have now completely resolved and he feels 100% back to normal. Past Medical History: Atrial fibrillation, CAD Past Surgical History: CABG Social History: Denies drugs alcohol and tobacco Family History: Reviewed and noncontributory for presenting illness Allergies: Reviewed, see documented allergy list. REVIEW OF SYSTEMS: CONSTITUTIONAL : No fever No chills No diaphoresis No recent illness EENT: No vision changes No congestion No sore throat CARDIOVASCULAR: chest pain palpitations RESPIRATORY: No shortness of breath No cough No difficulty breathing GASTROINTESTINAL: No abdominal pain nausea No vomiting No diarrhea GENITOURINARY: No dysuria No hematuria No difficulty urinating MUSCULOSKELETAL: No back pain No leg pain No arm pain SKIN: No rashes No lesions LYMPHATIC: No swollen, enlarged glands. NEUROLOGICAL: No lightheadedness No headache No weakness No paresthesias PSYCHIATRIC: No anxiety No depression PHYSICAL EXAMINATION: Vital signs reviewed, nursing noted reviewed. GENERAL: Well-appearing, well-nourished and in no acute distress. HEAD: Atraumatic, normocephalic. EYES: Eyes appear normal, extraocular movements intact, sclera anicteric, conjunctiva are normal. ENT: nares patent, oropharynx clear without exudates. Moist mucous membranes. NECK: Normal range of motion, supple without lymphadenopathy LUNGS: Breath sounds clear to auscultation bilaterally and equal. No wheezes rales or rhonchi. HEART: Tachycardic, regular rhythm, no murmur ABDOMEN: Soft, nontender, normoactive bowel sounds. No rebound, guarding, or rigidity. No masses appreciated. EXTREMITIES: Nontender, good range of motion, no pitting or edema. NEUROLOGICAL: No focal neurological deficits. Moves all extremities spontaneously Motor and sensory grossly intact on exam. PSYCH: Normal mood, normal affect. SKIN: Warm, Dry, normal turgor, no rashes or lesions noted on exposed skin - Related Data Allergies/Adverse Reactions: warfarin [From Coumadin] Allergy (Verified 09/10/17 13:01) Past Medical History - Social History Smoking Status: Never Smoker Frequency of alcohol use: None Drug Abuse: None Family History: Reviewed & Not Pertinent Patient has suicidal ideation: No Patient has homicidal ideation: No - Past Medical History Cardiac Medical History: Reports: Hx Atrial Fibrillation - Status post cardioversion about 5 days ago, Hx Coronary Artery Disease - Status post CABG about 13 years ago, Hx Heart Attack, Hx Hypertension Renal/ Medical History: Denies: Hx Peritoneal Dialysis Past Surgical History: Reports: Hx Cardiac Catheterization, Hx Cardiac Surgery - 4 way bypass, Hx Coronary Artery Bypass Graft, Hx Coronary Stent, Hx Neurologic Surgery - sami holes, Hx Orthopedic Surgery - finger - Immunizations Hx Diphtheria, Pertussis, Tetanus Vaccination: No Hx Pneumococcal Vaccination: 12/05/12 Review of Systems - Review of Systems Notes: Dictated Physical Exam - Vital signs Vitals: Temp Pulse Resp BP Pulse Ox 97.3 F 112 H 12 129/87 H 98 01/17/18 10:04 01/17/18 10:04 01/17/18 10:04 01/17/18 10:04 01/17/18 10:04 - Notes Notes: Dictated Course - Re-evaluation Re-evalutation: 01/17/18 10:59 Vitals reviewed. Nursing notes reviewed. EKG shows a sinus tachycardia with no ST elevation. 01/17/18 14:03 Patient has remained hemodynamically stable. He did have another episode of chest pain and his heart rate increased during the time of pain. His troponin is negative. He received an aspirin for his chest pain. Patient has had ablation and CABG performed previously at [facility]. Because of his significant cardiac history and his potential to need an intervention he will be transferred to [facility] for interventional cardiology and general cardiology evaluation. Case discussed with Dr. Gan who is accepted transfer. Patient and family are in agreement with this plan. He was stable at time of transfer. Chest X-Ray 01/17/18 10:16 IMPRESSION: Stable, chronic changes. Laboratory 01/17/18 01/17/18 01/17/18 10:40 10:40 10:40 WBC 6.9 RBC 3.80 L Hgb 12.0 L Hct 35.7 L MCV 94 MCH 31.6 MCHC 33.6 RDW 14.7 H Plt Count 261 Seg Neutrophils % 78.0 Lymphocytes % 12.4 L Monocytes % 6.4 Eosinophils % 2.3 Basophils % 0.9 Absolute Neutrophils 5.4 Absolute Lymphocytes 0.8 Absolute Monocytes 0.4 Absolute Eosinophils 0.2 Absolute Basophils 0.1 PT 15.4 INR 1.16 Sodium 133.4 L Potassium 5.1 H Chloride 100 Carbon Dioxide 24 Anion Gap 9 BUN 12 Creatinine 0.84 Est GFR ( Amer) > 60 Est GFR (Non-Af Amer) > 60 Glucose 122 H Calcium 9.2 Total Bilirubin 0.8 Direct Bilirubin 0.2 Neonat Total Bilirubin Not Reportable Neonat Direct Bilirubin Not Reportable Neonat Indirect Bili Not Reportable AST 23 ALT 24 Alkaline Phosphatase 87 Troponin I Total Protein 6.9 Albumin 3.8 01/17/18 10:40 WBC RBC Hgb Hct MCV MCH MCHC RDW Plt Count Seg Neutrophils % Lymphocytes % Monocytes % Eosinophils % Basophils % Absolute Neutrophils Absolute Lymphocytes Absolute Monocytes Absolute Eosinophils Absolute Basophils PT INR Sodium Potassium Chloride Carbon Dioxide Anion Gap BUN Creatinine Est GFR ( Amer) Est GFR (Non-Af Amer) Glucose Calcium Total Bilirubin Direct Bilirubin Neonat Total Bilirubin Neonat Direct Bilirubin Neonat Indirect Bili AST ALT Alkaline Phosphatase Troponin I 0.018 Total Protein Albumin - Vital Signs Vital signs: Temp Pulse Resp BP Pulse Ox 97.3 F 112 H 19 126/93 H 94 01/17/18 10:04 01/17/18 10:04 01/17/18 13:00 01/17/18 13:27 01/17/18 13:00 - Laboratory Result Diagrams: 01/17/18 10:40 01/17/18 10:40 Laboratory results interpreted by me: 01/17/18 01/17/18 10:40 10:40 RBC 3.80 L Hgb 12.0 L Hct 35.7 L RDW 14.7 H Lymphocytes % 12.4 L Sodium 133.4 L Potassium 5.1 H Glucose 122 H - EKG Interpretation by Me Additional EKG results interpreted by me: 01/17/18 10:48 Repeated by myself [id number]: Sinus tachycardia, rate 111, multiple PVCs, normal axis, no ST elevation Discharge - Discharge Clinical Impression: Tachycardia Chest pain Qualifiers: Chest pain type: unspecified Qualified Code(s): R07.9 - Chest pain, unspecified Condition: Stable Disposition: [facility]
[2018-01-17 11:01] LABS: ABSOLUTE BASOPHILS # (AUTO) 0.1 10^3/uL (0.0-0.2); ABSOLUTE EOSINOPHILS # (AUTO) 0.2 10^3/uL (0.0-0.6); ABSOLUTE LYMPHOCYTES (AUTO) 0.8 10^3/uL (0.5-4.7); ABSOLUTE MONOCYTES (AUTO) 0.4 10^3/uL (0.1-1.4); ABSOLUTE NEUT (AUTO) 5.4 10^3/uL (1.7-8.2); BASOPHILS % (AUTO) 0.9 % (0-2); EOSINOPHILS % (AUTO) 2.3 % (0-6); HEMATOCRIT 35.7 % (37.9-51.0); LYMPHOCYTES % (AUTO) 12.4 % (13-45); MEAN CORPUSCULAR HEMOGLOBIN 31.6 pg (27.0-33.4); MEAN CORPUSCULAR HGB CONC 33.6 g/dL (32.0-36.0); MEAN CORPUSCULAR VOLUME 94 fl (80-97); MONOCYTES % (AUTO) 6.4 % (3-13); PLATELET COUNT 261 10^3/uL (150-450); RED CELL DISTRIBUTION WIDTH 14.7 % (11.5-14.0); TOTAL CELLS COUNTED % (AUTO) 100 %; WHITE BLOOD COUNT 6.9 10^3/uL (4.0-10.5)
[2018-01-17 11:07] LABS: INTERNATIONAL RATION (INR) 1.16; PROTHROMBIN TIME 15.4 SEC (11.4-15.4)
--- NOTE | 2018-01-17 11:22 | RADIOLOGY REPORT (SQ) ---
EXAM DESCRIPTION: CHEST 2 VIEWS COMPLETED DATE/TIME: 01/17/2018 10:56 am REASON FOR STUDY: chest pain COMPARISON: 09/10/2017 NUMBER OF VIEWS: Two view TECHNIQUE: Frontal and lateral radiographic images of the chest acquired. LIMITATIONS: None. FINDINGS: LUNGS AND PLEURA: Chronic interstitial pattern. COPD. Chronic blunting of the right cost ophrenic angle. MEDIASTINUM AND HILAR STRUCTURES: Stable heart size and mediastinal structures. HEART AND VASCULAR STRUCTURES: Stable appearance. BONES: No acute findings. HARDWARE: CABG. OTHER: No other significant finding. IMPRESSION: Stable, chronic changes. TECHNICAL DOCUMENTATION: JOB ID: [id number] [employer]- All Rights Reserved Reading location - IP/workstation name: [email or web address]
[2018-01-17 11:23] LABS: ALANINE AMINOTRANSFERASE 24 U/L (21-72); ALBUMIN 3.8 g/dL (3.5-5.0); ALKALINE PHOSPHATASE 87 U/L (38-126); ANION GAP 9 (5-19); ASPARTATE AMINO TRANSFERASE 23 U/L (17-59); BILIRUBIN,DIRECT 0.2 mg/dL (0.0-0.4); BILIRUBIN,TOTAL 0.8 mg/dL (0.2-1.3); BLOOD UREA NITROGEN 12 mg/dL (7-20); CALCIUM 9.2 mg/dL (8.4-10.2); CARBON DIOXIDE 24 mmol/L (22-30); CHLORIDE 100 mmol/L (98-107); GLUCOSE 122 mg/dL (75-110); POTASSIUM 5.1 mmol/L (3.6-5.0); SODIUM 133.4 mmol/L (137-145); TOTAL PROTEIN 6.9 g/dL (6.3-8.2)
[2018-01-17] MEDS ORDERED: ASPIRIN 81 MG TABLET, CHEWABLE PO ONE (12:17)
[2018-01-17 15:06] VITALS: BP 124/89
--- NOTE | 2018-01-17 19:47 | EKG REPORT ---
SEVERITY:- ABNORMAL ECG - SINUS TACHYCARDIA VENTRICULAR PREMATURE COMPLEX NONSPECIFIC IVCD WITH LAD : Confirmed by: Bryanna Elena MD 17-Jan-2018 19:46:17
== END 2018-01-17 15:22 | disposition short-term general hospital (02) ==
LOC: ER 09:53
DX: I48.91 Unspecified atrial fibrillation (principal); R07.9 Chest pain, unspecified; R00.0 Tachycardia, unspecified; R11.10 Vomiting, unspecified; Z79.01 Long term (current) use of anticoagulants; Z95.1 Presence of aortocoronary bypass graft
CPT/HCPCS: 36415; 71046; 80053; 84484; 85025; 85610; 93005; 93010; 99285

== ENCOUNTER 2018-06-22 19:07 | Inpatient (IN) | payer MEDICARE, OTHER ==
[2018-06-22] MEDS ORDERED: NICARDIPINE 20 MG/200 ML PREMIX BAG IV ONE (19:59)
[2018-06-22] MEDS ORDERED: NORMAL SALINE 1000 ML 1,000 ML IV ONE (19:59)
[2018-06-22 20:00] LABS: ABSOLUTE EOSINOPHILS # (AUTO) 0.1 10^3/uL (0.0-0.6); ABSOLUTE MONOCYTES (AUTO) 0.7 10^3/uL (0.1-1.4); ABSOLUTE NEUT (AUTO) 5.9 10^3/uL (1.7-8.2); BASOPHILS % (AUTO) 0.5 % (0-2); HEMATOCRIT 33.9 % (37.9-51.0); HEMOGLOBIN 11.3 g/dL (13.5-17.0); LYMPHOCYTES % (AUTO) 13.1 % (13-45); MEAN CORPUSCULAR HEMOGLOBIN 30.7 pg (27.0-33.4); MEAN CORPUSCULAR HGB CONC 33.4 g/dL (32.0-36.0); MEAN CORPUSCULAR VOLUME 92 fl (80-97); MONOCYTES % (AUTO) 8.9 % (3-13); PLATELET COUNT 208 10^3/uL (150-450); RED BLOOD COUNT 3.69 10^6/uL (4.35-5.55); RED CELL DISTRIBUTION WIDTH 14.2 % (11.5-14.0); SEGMENTED NEUTROPHILS % (AUTO) 76.5 % (42-78); TOTAL CELLS COUNTED % (AUTO) 100 %; WHITE BLOOD COUNT 7.7 10^3/uL (4.0-10.5)
[2018-06-22] MEDS ORDERED: DILTIAZEM HCL INJ 25 MG/5 ML VIAL IV ONE ×2 (20:02→21:17)
--- NOTE | 2018-06-22 20:09 | ER Document Report ---
ED Respiratory Problem - General Chief Complaint: Shortness Of Breath Stated Complaint: SHORTNESS OF BREATH Time Seen by Provider: 06/22/18 19:31 Primary Care Provider: CANDACE HIGUERA FNP [Primary Care Provider] - Follow up as needed Mode of Arrival: Ambulatory Information source: Patient TRAVEL OUTSIDE OF THE [place] IN LAST 30 DAYS: No - HPI Patient complains to provider of: Chest pain, Short of breath Onset: Last week Duration: Worse/persistent Quality of pain: Achy Severity: Moderate Pain Level: 3 Short of Breath: Moderate Cough: Nonproductive Associated symptoms: Cough, Extertional dyspnea, Short of breath Similar symptoms previously: Yes Notes: Patient is an 82-year-old male presenting to the emergency room complaining of right shoulder pain with shortness of breath and dyspnea on exertion, he did have some coughing yesterday evening but he is reporting it to be nonproductive, denies a fever, denies chest pain, he is a former smoker, reports occasional chest pain but none at the present time, he has a history of [place] with quadruple bypass and 2 stents as well as ablation and atrial fibrillation, he currently does take blood thinners including Plavix, also takes enalapril and Lipitor but he cannot recall any of his other medications - Related Data Allergies/Adverse Reactions: warfarin [From Coumadin] Allergy (Verified 09/10/17 13:01) Past Medical History - General Information source: Patient - Social History Smoking Status: Former Smoker Family History: Reviewed & Not Pertinent Patient has suicidal ideation: No Patient has homicidal ideation: No - Past Medical History Cardiac Medical History: Reports: Hx Atrial Fibrillation - Status post cardioversion about 5 days ago, Hx Coronary Artery Disease - Status post CABG about 13 years ago, Hx Heart Attack, Hx Hypertension Renal/ Medical History: Denies: Hx Peritoneal Dialysis Past Surgical History: Reports: Hx Cardiac Catheterization, Hx Cardiac Surgery - 4 way bypass, Hx Coronary Artery Bypass Graft, Hx Coronary Stent, Hx Neurologic Surgery - sami holes, Hx Orthopedic Surgery - finger - Immunizations Hx Diphtheria, Pertussis, Tetanus Vaccination: No Hx Pneumococcal Vaccination: 12/05/12 Review of Systems - Review of Systems Constitutional: No symptoms reported EENT: No symptoms reported Cardiovascular: See HPI Respiratory: See HPI Gastrointestinal: No symptoms reported Genitourinary: No symptoms reported Male Genitourinary: No symptoms reported Musculoskeletal: See HPI Skin: No symptoms reported Hematologic/Lymphatic: No symptoms reported Neurological/Psychological: No symptoms reported -: Yes All other systems reviewed and negative Physical Exam - Vital signs Vitals: Temp Pulse Resp BP Pulse Ox 97.3 F 129 H 20 135/97 H 95 06/22/18 19:19 06/22/18 19:19 06/22/18 19:19 06/22/18 19:19 06/22/18 19:19 Interpretation: Tachycardic - General General appearance: Appears well, Alert - HEENT Head: Normocephalic, Atraumatic Eyes: Normal Pupils: PERRL - Respiratory Respiratory status: Labored Chest status: Nontender Breath sounds: Normal Chest palpation: Normal - Cardiovascular Rhythm: Regular Heart sounds: Normal auscultation Murmur: No - Abdominal Inspection: Normal Distension: No distension Bowel sounds: Normal Tenderness: Nontender Organomegaly: No organomegaly - Back Back: Normal, Nontender - Extremities General upper extremity: Normal inspection, Nontender, Normal color, Normal ROM, Normal temperature General lower extremity: Normal inspection, Tender - To palpate in the trapezius muscle on the left, Normal color, Normal ROM, Normal temperature, Normal weight bearing. No: Ree's sign - Neurological Neuro grossly intact: Yes Cognition: Normal Orientation: AAOx4 Navdeep Coma Scale Eye Opening: Spontaneous Navdeep Coma Scale Verbal: Oriented [place] Coma Scale Motor: Obeys Commands Navdeep Coma Scale Total: 15 Speech: Normal Motor strength normal: LUE, RUE, LLE, RLE Sensory: Normal - Psychological Associated symptoms: Normal affect, Normal mood - Skin Skin Temperature: Warm Skin Moisture: Dry Skin Color: Normal Course - Re-evaluation Re-evalutation: 06/22/18 22:29 Patient was discussed with on-call hospitalist, Dr. Huffman who accepts patient for telemetry observation - Vital Signs Vital signs: Temp Pulse Resp BP Pulse Ox 97.3 F 129 H 22 H 84/64 L 95 06/22/18 19:19 06/22/18 19:51 06/22/18 22:01 06/22/18 22:00 06/22/18 22:01 - Laboratory Result Diagrams: 06/22/18 19:47 06/22/18 19:47 Laboratory results interpreted by me: 06/22/18 06/22/18 06/22/18 19:47 19:47 19:47 RBC 3.69 L Hgb 11.3 L Hct 33.9 L RDW 14.2 H Sodium 134.3 L Potassium 5.2 H Carbon Dioxide 21 L BUN 24 H Creatinine 1.28 H Est GFR (Non-Af Amer) 54 L Glucose 131 H NT-Pro-B Natriuret Pep 7470 H - Diagnostic Test Radiology reviewed: Image reviewed, Reports reviewed - EKG Interpretation by Me Rate: Tachycardia Rhythm: A.Fib Discharge - Discharge Clinical Impression: Chest pain of uncertain etiology, CAD (coronary artery disease), Afib Condition: Stable Disposition: ADMITTED OBSERVATION Admitting Provider: Hospitalist Unit Admitted: Telemetry Referrals: CANDACE HIGUERA FNP [Primary Care Provider] - Follow up as needed
[2018-06-22 20:19] LABS: ALANINE AMINOTRANSFERASE 34 U/L (21-72); ALBUMIN 3.7 g/dL (3.5-5.0); ALKALINE PHOSPHATASE 113 U/L (38-126); ANION GAP 10 (5-19); ASPARTATE AMINO TRANSFERASE 24 U/L (17-59); BILIRUBIN,DIRECT 0.3 mg/dL (0.0-0.4); BILIRUBIN,TOTAL 0.8 mg/dL (0.2-1.3); BLOOD UREA NITROGEN 24 mg/dL (7-20); CALCIUM 9.2 mg/dL (8.4-10.2); CARBON DIOXIDE 21 mmol/L (22-30); CHLORIDE 103 mmol/L (98-107); GLUCOSE 131 mg/dL (75-110); POTASSIUM 5.2 mmol/L (3.6-5.0); SODIUM 134.3 mmol/L (137-145); TOTAL PROTEIN 6.3 g/dL (6.3-8.2)
[2018-06-22 20:31] LABS: NT PRO BNP 7470 pg/mL (<450); TROPONIN I < 0.012 ng/mL
--- NOTE | 2018-06-22 20:33 | RADIOLOGY REPORT (SQ) ---
EXAM DESCRIPTION: XR CHEST 1 VIEW COMPLETED DATE/TME: 06/22/2018 19:39 CLINICAL HISTORY: 82 years, Male, sob Portable chest Compared to 09/10/2017. HISTORY: Shortness of breath. FINDINGS: Heart is moderately enlarged. Mild bibasilar atelectatic changes. No pneumothorax. No pulmonary edema. IMPRESSION: Mild bibasilar atelectatic changes.
[2018-06-22 21:26] LABS: APPEARANCE,URINE CLEAR; BILIRUBIN,URINE NEGATIVE (NEGATIVE); COLOR,URINE YELLOW; GLUCOSE, URINE NEGATIVE (NEGATIVE); KETONES,URINE NEGATIVE (NEGATIVE); LEUKOCYTE ESTERASE,URINE NEGATIVE (NEGATIVE); NITRITE,URINE NEGATIVE (NEGATIVE); PROTEIN,URINE NEGATIVE (NEGATIVE); URINE SPECIFIC GRAVITY 1.014; UROBILINOGEN,URINE NEGATIVE mg/dL (<2.0)
[2018-06-22] MEDS ORDERED: ONDANSETRON HCL INJ/PF 4 MG/2 ML SDV IV PRN (23:07)
[2018-06-22] MEDS ORDERED: MAGNESIUM HYDROXIDE SUSP 30 ML UDCUP PO PRN ×2 (23:07→23:10)
[2018-06-22] MEDS ORDERED: ONDANSETRON 4 MG TAB.RAPDIS PO PRN (23:07)
[2018-06-22] MEDS ORDERED: MAG HYDROX/AL HYDROX/SIMETH SUSP 30 ML UDCUP PO PRN ×2 (23:07→23:10)
[2018-06-22] MEDS ORDERED: TEMAZEPAM 7.5 MG CAPSULE PO PRN (23:07)
[2018-06-22] MEDS ORDERED: MORPHINE SULFATE 10 MG/ML INJ IV PRN (23:10)
[2018-06-22] MEDS ORDERED: ACETAMINOPHEN 325 MG TABLET PO PRN (23:10)
--- NOTE | 2018-06-22 23:58 | EKG REPORT ---
SEVERITY:- ABNORMAL ECG - ATRIAL FIBRILLATION, V-RATE 117-192 PROBABLE INFERIOR INFARCT, AGE INDETERMINATE BORDERLINE PROLONGED QT INTERVAL : Confirmed by: Shelby Grover 22-Jun-2018 23:57:44
--- NOTE | 2018-06-23 00:38 | PDOC H&P ---
History of Present Illness Admission Date/PCP: 06/22/18 22:32 ADI ANGELES Patient complains of: Dyspnea on exertion History of Present Illness: TIFFANIE JIMENEZ is a 82 year old male who presented to the hospital with a 4-day history of progressively increasing dyspnea on exertion. He admits that his dyspnea started 4 days prior to his admission and it first was mild occurring only with significant exertion and not being present all at rest. Over the next 4 days he had gradual worsening of his dyspnea to the point where prior to coming to the hospital if he had become moderately severe and was affecting him very severely with even the slightest of exertion and was also present at rest for quite some time after exertion. He denies any associated symptoms but admits numerous prior similar episodes with difficulties related to his atrial fibrillation and congestive heart failure. He has not identified any additional aggravating or ameliorating factors for his dyspnea. In the emergency room he was found to have atrial fibrillation with a rapid ventricular response which responded to a small dose of Cardizem. His heart rate remained reasonably well controlled in the 90s-110s but he became dyspneic with mild exertion and thus was admitted for observation status to make appropriate medication adjustments. Past Medical History Cardiac Medical History: Reports: Atrial Fibrillation - Status post c ardioversion about 5 days ago, Coronary Artery Disease - Status post CABG about 13 years ago, Myocardial Infarction, Hypertension Pulmonary Medical History: Denies: Asthma, Chronic Obstructive Pulmonary Disease (COPD) EENT Medical History: Reports: Eyes - Wears glasses Denies: Nose - Nasal polyps Neurological Medical History: Denies: Hemorrhagic CVA, Ischemic CVA, Seizures Endocrine Medical History: Denies: Diabetes Mellitus Type 1, Diabetes Mellitus Type 2, Hyperthyroidism, Hypothyroidism, Obesity Renal/ Medical History: Denies: Chronic Kidney Disease, Nephrolithiasis Malignancy Medical History: Reports: None GI Medical History: Denies: Cirrhosis, Hepatitis Musculoskeltal Medical History: Denies: Arthritis, Gout Skin Medical History: Denies: Eczema, Psoriasis Psychiatric Medical History: Denies: Alcohol Dependency, Substance Abuse, Tobacco Dependency Traumatic Medical History: Reports: None Hematology: Denies: Anemia, Bleeding Tendencies Infectious Medical History: Reports: None Past Surgical History Past Surgical History: Reports: Cardiac Catheterization, Coronary Artery Bypass Graft, Coronary Stent, Orthopedic Surgery - finger Social History Information Source: Patient Lives with: Spouse/Significant other Smoking Status: Former Smoker Frequency of Alcohol Use: Social Hx Recreational Drug Use: No Hx Prescription Drug Abuse: No - Advance Directive Resuscitation Status: Full Code Surrogate healthcare decision maker:: Spouse Family History Family History: CAD. denies: DM, Malignancy Parental Family History Reviewed: Yes Children Family History Reviewed: No Sibling(s) Family History Reviewed.: Yes Medication/Allergy Home Medications: Amiodarone HCl [Pacerone 100 mg Tablet] 100 mg PO DAILY 09/10/17 Apixaban [Eliquis 5 mg Tablet] 5 mg PO BID 09/10/17 Atorvastatin Calcium [Lipitor 80 mg Tablet] 80 mg PO QHS 09/10/17 Enalapril Maleate [Vasotec 2.5 mg Tablet] 2.5 mg PO DAILY 09/10/17 Ferrous Sulfate [Iron] 325 mg PO DAILY 09/10/17 Magnesium Oxide [Magnesium] 400 mg PO DAILY 09/10/17 Metoprolol Tartrate [Lopressor 25 mg Tablet] 25 mg PO Q12 09/10/17 Multivitamin [Tab-A-Clarita] 1 tab PO DAILY 09/10/17 Allergies/Adverse Reactions: warfarin [From Coumadin] Allergy (Verified 09/10/17 13:01) Review of Systems Constitutional: ABSENT: chills, fever(s) Eyes: ABSENT: visual disturbances, other - Ocular pain Ears: ABSENT: hearing changes, other - Ear pain Nose, Mouth, and Throat: ABSENT: mouth pain, sore throat Cardiovascular: PRESENT: dyspnea on exertion. ABSENT: chest pain, edema, orthropnea, palpitations Respiratory: PRESENT: dyspnea. ABSENT: cough Gastrointestinal: ABSENT: abdominal pain, constipation, diarrhea, nausea, vomiting Genitourinary: ABSENT: dysuria, hematuria Musculoskeletal: ABSENT: back pain, joint swelling Integumentary: ABSENT: pruritus, rash Neurological: ABSENT: confusion, convulsions, focal weakness, memory loss Psychiatric: ABSENT: anxiety, depression Endocrine: ABSENT: cold intolerance, heat intolerance Hematologic/Lymphatic: ABSENT: easy bleeding, easy bruising Physical Exam Vital Signs: Temp Pulse Resp BP Pulse Ox 97.3 F 129 H 22 H 84/64 L 95 06/22/18 19:19 06/22/18 19:51 06/22/18 22:01 06/22/18 22:00 06/22/18 22:01 Intake & Output 06/20/18 06/21/18 06/22/18 23:59 23:59 23:59 Intake Total 1000 Balance 1000 Weight 87.3 kg General appearance: PRESENT: no acute distress, cooperative Head exam: ABSENT: atraumatic, normocephalic Eye exam: PRESENT: conjunctiva pink. ABSENT: scleral icterus Ear exam: PRESENT: normal external ear exam. ABSENT: bleeding, drainage Mouth exam: PRESENT: dry mucosa, neck supple Neck exam: ABSENT: thyromegaly, tracheal deviation Respiratory exam: PRESENT: clear to auscultation ramin, symmetrical, unlabored Cardiovascular exam: PRESENT: irregular rhythm - Irregularly irregular rate and rhythm, tachycardia. ABSENT: clicks, gallop, rubs Pulses: PRESENT: normal radial pulses, normal dorsalis pedis pul Vascular exam: PRESENT: normal capillary refill. ABSENT: pallor GI/Abdominal exam: PRESENT: normal bowel sounds, soft Rectal exam: PRESENT: deferred Extremities exam: ABSENT: joint swelling, pedal edema Musculoskeletal exam: PRESENT: full ROM, normal inspection Neurological exam: PRESENT: alert, oriented to person, oriented to place, oriented to time, oriented to situation, CN II-XII grossly intact. ABSENT: motor sensory deficit Psychiatric exam: PRESENT: appropriate affect, normal mood Skin exam: PRESENT: dry, intact, warm. ABSENT: jaundice, rash, urticaria Results Laboratory Results: 06/22/18 19:47 06/22/18 19:47 06/22/18 06/22/18 06/22/18 19:47 19:47 21:04 WBC 7.7 RBC 3.69 L Hgb 11.3 L Hct 33.9 L MCV 92 MCH 30.7 MCHC 33.4 RDW 14.2 H Plt Count 208 Seg Neutrophils % 76.5 Lymphocytes % 13.1 Monocytes % 8.9 Eosinophils % 1.0 Basophils % 0.5 Absolute Neutrophils 5.9 Absolute Lymphocytes 1.0 Absolute Monocytes 0.7 Absolute Eosinophils 0.1 Absolute Basophils 0.0 Sodium 134.3 L Potassium 5.2 H Chloride 103 Carbon Dioxide 21 L Anion Gap 10 BUN 24 H Creatinine 1.28 H Est GFR ( Amer) > 60 Est GFR (Non-Af Amer) 54 L Glucose 131 H Calcium 9.2 Total Bilirubin 0.8 AST 24 ALT 34 Alkaline Phosphatase 113 Total Protein 6.3 Albumin 3.7 Urine Color YELLOW Urine Appearance CLEAR Urine pH 5.0 Ur Specific [place] 1.014 Urine Protein NEGATIVE Urine Glucose (UA) NEGATIVE Urine Ketones NEGATIVE Urine Blood NEGATIVE Urine Nitrite NEGATIVE Ur Leukocyte Esterase NEGATIVE Urine WBC (Auto) 1 Urine RBC (Auto) 1 06/22/18 19:47 Troponin I < 0.012 NT-Pro-B Natriuret Pep 7470 H Impressions: Chest X-Ray 06/22/18 19:39 IMPRESSION: Mild bibasilar atelectatic changes. Assessment and Plan - Diagnosis (1) Atrial fibrillation with rapid ventricular response Is this a current diagnosis for this admission?: Yes Plan: 06/23/18 00:35 Patient's A. fib with RVR was treated with Cardizem IV bolus in the ER however this resulted in a significant drop in his blood pressure. Patient's blood pressure responded to a small fluid bolus and is now stable. If he develops recurrent RVR it would be best treated with metoprolol 5 mg IV x1 to establish control in the consider further dosing as needed. Patient will be started on increased dose of metoprolol in the morning for longer term control of his A. fib with RVR. He is continued on apixaban however a discussion of risks versus benefits should be undertaken to determine whether the patient would really choose to be at higher risk for bleeding versus a lower risk for stroke. (2) CHF (congestive heart failure) Qualifiers: Heart failure type: diastolic Heart failure chronicity: acute on chronic Qualified Code(s): I50.33 - Acute on chronic diastolic (congestive) heart failure Is this a current diagnosis for this admission?: Yes Plan: 06/23/18 00:33 Patient CHF will be addressed by medication adjustment with discontinuation of amiodarone and enalapril at this time and try to achieve good rate control with metoprolol succinate 50 mg p.o. every morning if patient tolerates this dosage and his blood pressure remains adequate adding a small dose of spironolactone and a small dose of ANNIKA inhibitor or an ARB may be appropriate. If patient becomes significantly dyspneic there is an order available for morphine sulfate 2-4 mg IV every 2 hours as needed for pain or discomfort. (3) CAD (coronary artery disease) Qualifiers: Coronary Disease-Associated Artery/Lesion type: [place] artery [place] vs. transplanted heart: [place] heart Associated angina: angina presence unspecified Qualified Code(s): I25.10 - Atherosclerotic heart disease of [place] coronary artery without angina pectoris Is this a current diagnosis for this admission?: Yes Plan: 06/23/18 00:32 Continue current cardiac medications with the exception of amiodarone and enalapril. Increase dose of metoprolol and convert to succinate formulation as this would be more appropriate for treating his CHF. (4) HLD (hyperlipidemia) Qualifiers: Hyperlipidemia type: unspecified Qualified Code(s): E78.5 - Hyperlipidemia, unspecified Is this a current diagnosis for this admission?: Yes Plan: 06/23/18 00:31 Continue current hyperlipidemia medications. Check lipid profile to assess efficacy of therapy. - Time Time Spent with patient: 35 or more minutes Medications reviewed and adjusted accordingly: Yes Anticipated discharge: Home - Inpatient Certification Based on my medical assessment, after consideration of the patient's comorbidities, presenting symptoms, or acuity I expect that the services needed warrant INPATIENT care.: No I certify that my determination is in accordance with my understanding of Medicare's requirements for reasonable and necessary INPATIENT services [42 CFR 412.3e].: No Medical Necessity: Need Close Monitoring Due to Risk of Patient Decompensation, Need For Continuous Telemetry Monitoring, Risk of Complication if Not Cared For in Hospital
[2018-06-23 03:11] LABS: CREATINE KINASE MB 1.09 ng/mL (<4.55)
[2018-06-23 03:18] LABS: TROPONIN I < 0.012 ng/mL
[2018-06-23 08:28] LABS: ABSOLUTE EOSINOPHILS # (AUTO) 0.1 10^3/uL (0.0-0.6); ABSOLUTE LYMPHOCYTES (AUTO) 1.2 10^3/uL (0.5-4.7); ABSOLUTE MONOCYTES (AUTO) 0.7 10^3/uL (0.1-1.4); ABSOLUTE NEUT (AUTO) 4.8 10^3/uL (1.7-8.2); BASOPHILS % (AUTO) 0.3 % (0-2); EOSINOPHILS % (AUTO) 1.4 % (0-6); HEMATOCRIT 32.9 % (37.9-51.0); HEMOGLOBIN 10.9 g/dL (13.5-17.0); LYMPHOCYTES % (AUTO) 17.8 % (13-45); MEAN CORPUSCULAR HEMOGLOBIN 30.1 pg (27.0-33.4); MEAN CORPUSCULAR VOLUME 91 fl (80-97); MONOCYTES % (AUTO) 9.9 % (3-13); PLATELET COUNT 178 10^3/uL (150-450); RED BLOOD COUNT 3.61 10^6/uL (4.35-5.55); RED CELL DISTRIBUTION WIDTH 14.6 % (11.5-14.0); SEGMENTED NEUTROPHILS % (AUTO) 70.6 % (42-78); TOTAL CELLS COUNTED % (AUTO) 100 %; WHITE BLOOD COUNT 6.7 10^3/uL (4.0-10.5)
[2018-06-23 08:52] LABS: ANION GAP 8 (5-19); BLOOD UREA NITROGEN 23 mg/dL (7-20); CALCIUM 9.1 mg/dL (8.4-10.2); CARBON DIOXIDE 22 mmol/L (22-30); CHLORIDE 105 mmol/L (98-107); CHOLESTEROL 148.83 mg/dL (0-200); CREATINE KINASE 103 U/L (55-170); GLUCOSE 101 mg/dL (75-110); POTASSIUM 4.9 mmol/L (3.6-5.0); SODIUM 135.3 mmol/L (137-145); TRIGLYCERIDES 75 mg/dL (<150)
[2018-06-23 09:13] LABS: CREATINE KINASE MB 1.03 ng/mL (<4.55)
[2018-06-23 09:15] LABS: FREE T3 3.05 pg/mL (2.77-5.27); FREE T4 (FREE THYROXINE) 1.52 ng/dL (0.78-2.19); TROPONIN I < 0.012 ng/mL
[2018-06-23 09:16] LABS: DIRECT LDL 76 mg/dL (<100)
[2018-06-23 09:29] LABS: THYROID STIMULATING HORMONE 4.82 uIU/mL (0.47-4.68)
[2018-06-23] MEDS ORDERED: METOPROLOL SUCCINATE 25 MG TAB.SR.24H PO SCH (10:00)
[2018-06-23] MEDS: FERROUS SULFATE 325 MG TABLET PO SCH (10:24)
[2018-06-23] MEDS: MAGNESIUM OXIDE 400 MG TABLET PO SCH (10:24)
[2018-06-23] MEDS: MULTIVITAMIN TABLET PO SCH (10:24)
[2018-06-23] MEDS: FAMOTIDINE 20 MG TABLET PO SCH ×2 (10:24→21:55)
[2018-06-23] MEDS: APIXABAN 5 MG TABLET PO SCH ×2 (10:24→20:12)
[2018-06-23] MEDS: DOCUSATE SODIUM 100 MG CAPSULE PO SCH ×2 (10:25→20:12)
[2018-06-23 14:52] LABS: CREATINE KINASE MB 1.23 ng/mL (<4.55)
[2018-06-23 14:56] LABS: TROPONIN I < 0.012 ng/mL
--- NOTE | 2018-06-23 14:56 | RADIOLOGY REPORT (SQ) ---
EXAM DESCRIPTION: SHOULDER RIGHT 2 OR MORE VIEWS COMPLETED DATE/TIME: 06/23/2018 2:47 pm REASON FOR STUDY: Right shoulder pain R06.00 DYSPNEA, UNSPECIFIED E78.5 HYPERLIPIDEMIA, UNSPECIFIE D COMPARISON: 06/05/2011 NUMBER OF VIEWS: Three views. TECHNIQUE: Internal rotation, external rotation, and Y view images acquired of the right shoulder. LIMITATIONS: None. FINDINGS: MINERALIZATION: Osteopenia. BONES: No acute fracture. No worrisome bone lesion. Acromioclavicular osteoarthropathy with osteoph ytosis pre JOINTS: No dislocation. Decreased subacromial space compatible with rotator cuff loss. Subchondral cystic change within the superolateral humeral head compatible with chronic rotator cuff disease. VISUALIZED LUNGS AND RIBS: Chronic interstitial opacities. Median sternotomy changes. SOFT TISSUES: No radiopaque foreign body. OTHER: No other significant finding. IMPRESSION: No acute bony abnormality. Evidence of chronic rotator cuff loss, Progressed from prior. Acromioclavicular osteoarthropathy. TECHNICAL DOCUMENTATION: JOB ID: [id number] [employer]- All Rights Reserved Reading location - IP/workstation name: [email or web address]
[2018-06-23] MEDS ORDERED: ATORVASTATIN CALCIUM 80 MG TABLET PO SCH (22:00)
[2018-06-24] MEDS ORDERED: DIGOXIN INJ 0.5 MG/2 ML AMPULE IV ONE (08:13)
[2018-06-24] MEDS: MAGNESIUM OXIDE 400 MG TABLET PO SCH (09:26)
[2018-06-24] MEDS: APIXABAN 5 MG TABLET PO SCH ×2 (09:26→17:27)
[2018-06-24] MEDS: DOCUSATE SODIUM 100 MG CAPSULE PO SCH ×2 (09:26→17:27)
[2018-06-24] MEDS: FAMOTIDINE 20 MG TABLET PO SCH (09:26)
[2018-06-24] MEDS: MULTIVITAMIN TABLET PO SCH (09:26)
[2018-06-24] MEDS: FERROUS SULFATE 325 MG TABLET PO SCH (09:26)
--- NOTE | 2018-06-24 09:55 | RADIOLOGY REPORT (SQ) ---
EXAM DESCRIPTION: CHEST SINGLE VIEW COMPLETED DATE/TIME: 06/24/2018 9:08 am REASON FOR STUDY: Shortness of breath COMPARISON: CT angio chest 11/16/2015 Chest films 11/16/2015, 01/17/2018, 06/22/2018 EXAM PARAMETERS: NUMBER OF VIEWS: One view. TECHNIQUE: Single frontal radiographic view of the chest acquired. RADIATION DOSE: NA LIMITATIONS: None. FINDINGS: LUNGS AND PLEURA: Increased interstitial markings around the periphery of both lungs likel y pulmonary fibrosis. Loss of discrete left hemidiaphragm could indicate trace left pleural effusion or minimal left basila r airspace disease. This is stable compared to 06/22/2018. No pneumothorax. MEDIASTINUM AND HILAR STRUCTURES: No masses. Contour normal. HEART AND VASCULAR STRUCTURES: Moderate cardiomegaly with old sternotomy and CABG BONES: No acute findings HARDWARE: Old sternotomy for CABG OTHER: No other significant finding. IMPRESSION: Loss of the discrete left hemidiaphragm on portable film could indicate stress left pleu ral effusion or left basilar consolidation. This is similar compared to 06/22/2018 TECHNICAL DOCUMENTATION: JOB ID: [id number] [employer]- All Rights Reserved Reading location - IP/workstation name: [email or web address]
[2018-06-24] MEDS ORDERED: METOPROLOL SUCCINATE 50 MG TAB.SR.24H PO SCH (10:00)
[2018-06-24 12:04] LABS: ANION GAP 11 (5-19); BLOOD UREA NITROGEN 28 mg/dL (7-20); CALCIUM 9.1 mg/dL (8.4-10.2); CARBON DIOXIDE 21 mmol/L (22-30); CHLORIDE 100 mmol/L (98-107); GLUCOSE 108 mg/dL (75-110); POTASSIUM 4.8 mmol/L (3.6-5.0); SODIUM 132.3 mmol/L (137-145)
[2018-06-24] MEDS ORDERED: AMIODARONE HCL 200 MG TABLET PO ONE (13:30)
[2018-06-24 18:45] VITALS: BP 113/77
[2018-06-24] MEDS ORDERED: AMIODARONE HCL 200 MG TABLET PO SCH (22:00)
--- NOTE | 2018-06-25 06:04 | PDOC PROGRESS REPORT ---
Subjective Progress Note for:: 06/23/18 Subjective:: Feels better than last night. Still with breakthrough episodes of rapid ventricular response. He is having right shoulder pain and this seems to trigger his heart rate above 110. He is also still on nasal cannula oxygen. Reason For Visit: AFIB WITH RVR Physical Exam Vital Signs: Temp Pulse Resp BP Pulse Ox 98.1 F 134 H 18 136/81 H 93 06/23/18 08:00 06/23/18 08:00 06/23/18 08:00 06/23/18 08:00 06/23/18 08:00 Intake & Output 06/22/18 06/23/18 06/24/18 06:59 06:59 06:59 Intake Total 1075 Output Total 150 Balance 925 Weight 87.3 kg General appearance: PRESENT: no acute distress, cooperative, well-developed Head exam: PRESENT: atraumatic, normocephalic Eye exam: PRESENT: conjunctiva pink. ABSENT: scleral icterus Ear exam: PRESENT: normal external ear exam Mouth exam: PRESENT: dry mucosa, tongue midline Teeth exam: PRESENT: edentulous Neck exam: PRESENT: lymphadenopathy - 1 submandibular node palpable on both sides. Nontender.. ABSENT: carotid bruit, JVD Respiratory exam: PRESENT: clear to auscultation ramin, symmetrical, unlabored. ABSENT: rales, rhonchi, wheezes Cardiovascular exam: PRESENT: irregular rhythm GI/Abdominal exam: PRESENT: normal bowel sounds, soft. ABSENT: distended, tenderness Rectal exam: PRESENT: deferred Gentrourinary exam: ABSENT: indwelling catheter Extremities exam: ABSENT: pedal edema Musculoskeletal exam: PRESENT: tenderness - Tenderness over the posterior shoulder joint as well as the right supraspinatus muscle. Neurological exam: PRESENT: alert, awake, oriented to person, oriented to place, oriented to time, oriented to situation, CN II-XII grossly intact Psychiatric exam: PRESENT: appropriate affect, normal mood. ABSENT: agitated, anxious Focused psych exam: ABSENT: delusional, restlessness Skin exam: PRESENT: dry, normal color, warm. ABSENT: rash Results Laboratory Results: 06/23/18 07:47 06/23/18 07:47 06/22/18 06/22/18 06/22/18 19:47 19:47 21:04 WBC 7.7 RBC 3.69 L Hgb 11.3 L Hct 33.9 L MCV 92 MCH 30.7 MCHC 33.4 RDW 14.2 H Plt Count 208 Seg Neutrophils % 76.5 Lymphocytes % 13.1 Monocytes % 8.9 Eosinophils % 1.0 Basophils % 0.5 Absolute Neutrophils 5.9 Absolute Lymphocytes 1.0 Absolute Monocytes 0.7 Absolute Eosinophils 0.1 Absolute Basophils 0.0 Sodium 134.3 L Potassium 5.2 H Chloride 103 Carbon Dioxide 21 L Anion Gap 10 BUN 24 H Creatinine 1.28 H Est GFR ( Amer) > 60 Est GFR (Non-Af Amer) 54 L Glucose 131 H Calcium 9.2 Magnesium Total Bilirubin 0.8 AST 24 ALT 34 Alkaline Phosphatase 113 Total Protein 6.3 Albumin 3.7 Triglycerides Cholesterol LDL Cholesterol Direct VLDL Cholesterol HDL Cholesterol TSH Free T4 Free T3 pg/mL Urine Color YELLOW Urine Appearance CLEAR Urine pH 5.0 Ur Specific [place] 1.014 Urine Protein NEGATIVE Urine Glucose (UA) NEGATIVE Urine Ketones NEGATIVE Urine Blood NEGATIVE Urine Nitrite NEGATIVE Ur Leukocyte Esterase NEGATIVE Urine WBC (Auto) 1 Urine RBC (Auto) 1 06/23/18 06/23/18 06/23/18 07:47 07:47 07:47 WBC 6.7 RBC 3.61 L Hgb 10.9 L Hct 32.9 L MCV 91 MCH 30.1 MCHC 33.0 RDW 14.6 H Plt Count 178 Seg Neutrophils % 70.6 Lymphocytes % 17.8 Monocytes % 9.9 Eosinophils % 1.4 Basophils % 0.3 Absolute Neutrophils 4.8 Absolute Lymphocytes 1.2 Absolute Monocytes 0.7 Absolute Eosinophils 0.1 Absolute Basophils 0.0 Sodium 135.3 L Potassium 4.9 Chloride 105 Carbon Dioxide 22 Anion Gap 8 BUN 23 H Creatinine 1.19 Est GFR ( Amer) > 60 Est GFR (Non-Af Amer) 58 L Glucose 101 Calcium 9.1 Magnesium 1.8 Total Bilirubin AST ALT Alkaline Phosphatase Total Protein Albumin Triglycerides 75 Cholesterol 148.83 LDL Cholesterol Direct 76 VLDL Cholesterol 15.0 HDL Cholesterol 60 TSH 4.82 H Free T4 1.52 Free T3 pg/mL 3.05 Urine Color Urine Appearance Urine pH Ur Specific [place] Urine Protein Urine Glucose (UA) Urine Ketones Urine Blood Urine Nitrite Ur Leukocyte Esterase Urine WBC (Auto) Urine RBC (Auto) 06/22/18 06/23/18 06/23/18 19:47 01:37 01:37 Creatine Kinase 96 CK-MB (CK-2) 1.09 Troponin I < 0.012 < 0.012 NT-Pro-B Natriuret Pep 7470 H 06/23/18 06/23/18 07:47 07:47 Creatine Kinase 103 CK-MB (CK-2) 1.03 Troponin I < 0.012 NT-Pro-B Natriuret Pep Impressions: Chest X-Ray 06/22/18 19:39 IMPRESSION: Mild bibasilar atelectatic changes. Assessment and Plan - Diagnosis (1) Atrial fibrillation with rapid ventricular response Is this a current diagnosis for this admission?: Yes Plan: The patient's heart rate is still extremely labile. He typically notes that when he has right shoulder pain he tends to be more tachycardic. In addition with exertion he becomes more tachycardic. He is very anxious to go home and this is likely contributing as well. I will increase his metoprolol back to his old dose of 100 mg daily. He was on this dose several years ago and he was on this dose several years ago and it was effective. We did have a 15-minute discussion revolving around the next step as an outpatient. His manager people explained that if cardioversion or ablation failed it is unlikely that a second ablation would be effective. The next step might very well be pacemaker implanted. Although the patient wanted to avoid this initially we reviewed the benefits over risk and since he does not want to be hospitalized regularly he will consider follow-up with cardiology to discuss this further. (2) Right rotator cuff tear Qualifiers: Rotator cuff tear extent: incomplete Encounter type: initial encounter Is this a current diagnosis for this admission?: Yes Plan: The patient had tenderness over the posterior aspect of the right shoulder as well as over the supraspinatus muscle. We will obtain an x-ray. I explained to him that typically this is indicative of rotator cuff injury. Surgical treatment would not be a reasonable option at this point. Arthritic changes would also be expected at his age. We will review the x-ray results and discuss further. (3) CAD (coronary artery disease) Qualifiers: Coronary Disease-Associated Artery/Lesion type: [place] artery [place] vs. transplanted heart: [place] heart Associated angina: angina presence unspecified Qualified Code(s): I25.10 - Atherosclerotic heart disease of [place] coronary artery without angina pectoris Is this a current diagnosis for this admission?: Yes Plan: The patient is currently stable. He is on atorvastatin and metoprolol. He is not on an aspirin but this may be related to the Eliquis for his atrial fibrillation. (4) CHF (congestive heart failure) Qualifiers: Heart failure type: diastolic Heart failure chronicity: acute on chronic Qualified Code(s): I50.33 - Acute on chronic diastolic (congestive) heart fail ure Is this a current diagnosis for this admission?: Yes Plan: The patient has a history of congestive heart failure. He was short of breath o n admission. By x-ray and clinical exam his lungs are clear and the shortness of breath was most likely due to the atrial fibrillation. We will continue his home regimen. I believe that improved control of his heart rate will help the shortness of breath. He does have increased oxygen need and so I believe there is a subtle exacerbation from his baseline related to that. (5) HLD (hyperlipidemia) Qualifiers: Hyperlipidemia type: unspecified Qualified Code(s): E78.5 - Hyperlipidemia, unspecified Is this a current diagnosis for this admission?: Yes Plan: Continue atorvastatin 80 mg daily (6) Chronic anticoagulation Is this a current diagnosis for this admission?: Yes Plan: We did discuss the risks and benefits of his Eliquis. I will defer further discussion to his manager people. He will continue on the same regimen at this time. There is no evidence of bleeding complications. - Time Time Spent with patient: 25-34 minutes Medications reviewed and adjusted accordingly: Yes Anticipated discharge: Home Within: within 48 hours
--- NOTE | 2018-06-25 06:23 | PDOC DISCHARGE SUMMARY ---
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 This was not completely effective. The patient still has breakthrough tachycardia. I increased his dose again yesterday. This still allowed breakthrough tachycardia. Earlier today I gave the patient a single dose of 0.25 mg digoxin and this had no significant effect. At midday he was still tachycardic and so I gave him a 400 mg single dose of amiodarone and will start amiodarone 200 mg twice daily. He has been taken off of his amiodarone recently but he reports effectiveness previously. I will return to this dose. The patient's resting heart rate is between 101 110. I discussed the situation with the patient and his son. The patient is extremely anxious and wants to go home and his son feels that this is contributing. We discussed the need to call his bailing machine operator and have a follow-up visit as soon as possible. We revisited the pacemaker topic and I believe the patient will pursue this option. He will be discharged on the metoprolol succinate 100 mg twice daily as well as amiodarone 200 mg twice a day. The patient has adequate supplies of both medications so that he will not need new prescriptions at this time. (2) Right rotator cuff tear Is this a current diagnosis for this admission?: Yes Summary: The shoulder x-ray did suggest a partial tear of the right rotator cuff. We discussed the fact that surgery would probably have more risk than benefit. The patient agreed. With his history of heart disease he is not a good candidate for nonsteroidal anti-inflammatory medication. In addition he does not want chronic narcotic medication. I suggested warm compresses but noted that physical therapy might be of benefit. He will pursue this through his primary care physician. (3) Right shoulder pain Is this a current diagnosis for this admission?: Yes Summary: In addition to the suspected rotator cuff injury there are arthritic changes present. Also noted was osteopenia. Pain management was discussed as noted above. (4) CAD (coronary artery disease) Is this a current diagnosis for this admission?: Yes Summary: Other than the atrial fibrillation the patient did not have elevated troponins despite his rapid ventricular rate. He will continue on his current regimen which includes metoprolol. Upon further review the patient Plavix and will return to this medication at discharge. He is also on low-dose ANNIKA inhibitor. He will follow-up with cardiology soon after discharge. (5) CHF (congestive heart failure) Is this a current diagnosis for this admission?: Yes Summary: As noted above the patient does have chronic diastolic heart failure. He did experience shortness of breath on admission. His brain natruretic peptide was over 7000. It is impossible to know whether this is his baseline or not. I suspect that some of the shortness of breath was related to his atrial fibrillation with rapid ventricular response. He will return to his low dose ANNIKA inhibitor and the new dose of metoprolol at discharge. We also resumed amiodarone as noted above. (6) HLD (hyperlipidemia) Is this a current diagnosis for this admission?: Yes Summary: Continue atorvastatin. (7) Chronic anticoagulation Is this a current diagnosis for this admission?: Yes Summary: He will continue the apixaban. We did briefly discuss risks versus benefits as patient's continue to age. I will defer to his bailing machine operator for any changes in his regimen. 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 His TSH is slightly elevated. This is likely due to his amiodarone therapy. As noted above he has been restarted on amiodarone short-term until he can see his bailing machine operator and likely undergo pacemaker implantation. We will continue his current dose of levothyroxine. - Additional Information Resuscitation Status: Full Code Discharge Diet: Cardiac Discharge Activity: Activity As Tolerated, Balance Activity w/Rest, Weigh Daily Home Medications: Apixaban [Eliquis 5 mg Tablet] 5 mg PO BID 06/23/18 Atorvastatin Calcium [Lipitor 80 mg Tablet] 80 mg PO DAILY 06/23/18 Clopidogrel Bisulfate [Plavix 75 mg Tablet] 75 mg PO DAILY 06/23/18 Enalapril Maleate [Vasotec 2.5 mg Tablet] 2.5 mg PO DAILY 06/23/18 Ferrous Sulfate [Feosol 325 mg Tablet] 325 mg PO DAILY 06/23/18 Levothyroxine Sodium [Synthroid 0.05 mg Tablet] 50 mcg PO Q6AM 06/23/18 Magnesium Oxide [Mag-Ox 400 mg Tablet] 400 mg PO DAILY 06/23/18 Metoprolol Succinate [Toprol Xl 25 mg Tab.sr] 25 mg PO DAILY 06/23/18 Pantoprazole Sodium [Protonix [address] Tablet] 40 mg PO Q6AM 06/23/18 Potassium Chloride [Klor-Con M20] 20 meq PO DAILY 06/23/18 Psyllium Husk [Metamucil] 0.4 gm PO DAILY 06/23/18 Amiodarone HCl [Cordarone 200 mg Tablet] 200 mg PO Q12 tablet 06/24/18 Apixaban [Eliquis 5 mg Tablet] 5 mg PO BID tablet 06/24/18 Atorvastatin Calcium [Lipitor 80 mg Tablet] 80 mg PO QHS tablet 06/24/18 Ferrous Sulfate [Feosol 325 mg Tablet] 325 mg PO DAILY tablet 06/24/18 Metoprolol Succinate [Toprol Xl 50 mg Tab.sr] 100 mg PO DAILY tab.sr.24h 06/24/18 Multivitamin [Tab-A-Clarita (Multiple Vitamin) Tablet] 1 tab PO DAILY tablet 06/24/18 History of Present Illness Patient complains of: Dyspnea on exertion History of Present Illness: TIFFANIE JIMENEZ is a 82 year old male with a history of coronary artery disease, chronic congestive heart failure and atrial fibrillation. Over the 4 days prior to admission he was experiencing increasing shortness of breath with exertion. Initially it was mild and then progressed with significant shortness of breath with minimal exertion. His recovery became more prolonged. Upon evaluation in the emergency department he was found to be in atrial fibrillation with rapid ventricular response with heart rates approaching 150. The patient had undergone ablation therapy and was on metoprolol and amiodarone afterwards. Over time his amiodarone was decreased and subsequently discontinued and his metoprolol dose had been reduced significantly. It seems that his poor rate control corresponds to the changes in medication. The patient was given an initial dose of diltiazem. This seemed to be helpful. He was referred to the hospital service for admission. Hospital Course Hospital Course: The patient had an uneventful hospital course. Daily changes enhanced medications were undertaken. Several changes were administered today. Finally this evening his heart rate was between 101 110 resting and his oxygen saturation was 91% on room air. He desperately wanted to get home. His son feels that his anxiety from ongoing hospitalization is only worsening his tachycardia. With his long history of atrial fibrillation they are very familiar with symptoms and disease progression. Both are comfortable with the patient being discharged. As noted above he was discharged on metoprolol succinate 100 mg daily as well as returning to amiodarone at 200 mg twice a day. He will follow-up with his bailing machine operator as soon as possible. Physical Exam Vital Signs: Temp Pulse Resp BP Pulse Ox 97.3 F 116 H 20 100/68 97 06/24/18 10:43 06/24/18 13:51 06/24/18 10:43 06/24/18 10:43 06/24/18 10:43 Intake & Output 06/23/18 06/24/18 06/25/18 06:59 06:59 06:59 Intake Total 1075 150 472 Output Total 150 675 400 Balance 925 -525 72 Weight 87.3 kg 94.4 kg General appearance: PRESENT: no acute distress, cooperative, well-developed Head exam: PRESENT: normocephalic Eye exam: PRESENT: conjunctiva pink. ABSENT: scleral icterus Ear exam: PRESENT: normal external ear exam Mouth exam: PRESENT: moist, tongue midline Teeth exam: PRESENT: edentulous Respiratory exam: PRESENT: clear to auscultation ramin, symmetrical, unlabored. ABSENT: rales, rhonchi, wheezes Cardiovascular exam: PRESENT: irregular rhythm, systolic murmur GI/Abdominal exam: PRESENT: normal bowel sounds, soft. ABSENT: distended, guarding, tenderness Rectal exam: PRESENT: deferred Gentrourinary exam: ABSENT: indwelling catheter Extremities exam: ABSENT: calf tenderness, pedal edema Musculoskeletal exam: PRESENT: ambulatory Neurological exam: PRESENT: alert, awake, oriented to person, oriented to place, oriented to time, oriented to situation, CN II-XII grossly intact Psychiatric exam: PRESENT: anxious, appropriate affect, normal mood. ABSENT: agitated Focused psych exam: ABSENT: delusional, restlessness Results Laboratory Results: 06/23/18 07:47 06/24/18 10:24 06/24/18 10:24 Sodium 132.3 L Potassium 4.8 Chloride 100 Carbon Dioxide 21 L Anion Gap 11 BUN 28 H Creatinine 1.12 Est GFR ( Amer) > 60 Est GFR (Non-Af Amer) > 60 Glucose 108 Calcium 9.1 Magnesium 1.8 06/22/18 06/23/18 06/23/18 19:47 01:37 01:37 Creatine Kinase 96 CK-MB (CK-2) 1.09 Troponin I < 0.012 < 0.012 NT-Pro-B Natriuret Pep 7470 H 06/23/18 06/23/18 06/23/18 07:47 07:47 14:09 Creatine Kinase 103 113 CK-MB (CK-2) 1.03 Troponin I < 0.012 NT-Pro-B Natriuret Pep 06/23/18 06/24/18 14:09 10:24 Creatine Kinase CK-MB (CK-2) 1.23 Troponin I < 0.012 NT-Pro-B Natriuret Pep 7160 H Impressions: Shoulder X-Ray 06/23/18 00:00 IMPRESSION: No acute bony abnormality. Evidence of chronic rotator cuff loss, Progressed from prior. Acromioclavicular osteoarthropathy. Chest X-Ray 06/24/18 00:00 IMPRESSION: Loss of the discrete left hemidiaphragm on portable film could indicate stress left pleural effusion or left basilar consolidation. This is similar compared to 06/22/2018 Qualifiers - * PATIENT BEING DISCHARGED WITH ANY OF THE FOLLOWING DIAGNOSIS: Heart Failure HF Pt being discharged on ACEI for LVEF less than 40%?: Yes HF Pt being discharged on ARBS for LVEF less than 40%?: No Reason(s) for not prescribing ARBS:: Not indicated - Ejection fraction greater than 40% HF Pt with Afib discharged with Warfarin?: No Reason(s) for not prescribing Warfarin:: Not indicated - Patient is on apixaban HF Pt discharged on evidence-based Beta Bhargavi:: Yes
== END 2018-06-24 18:58 | disposition home or self-care (01) | DRG 308 ==
LOC: ER 19:07 → EH 22:32 → 5 06-23 01:19 → OBSVTOIN 06-23 16:17
PROVIDERS: ADMIT Emergency Medicine; ATTEND Emergency Medicine
DX: I48.91 Unspecified atrial fibrillation (principal); I50.33 Acute on chronic diastolic (congestive) heart failure; E87.1 Hypo-osmolality and hyponatremia; E78.5 Hyperlipidemia, unspecified; I25.10 Atherosclerotic heart disease of native coronary artery without angina pectoris; M75.111 Incomplete rotator cuff tear or rupture of right shoulder, not specified as traumatic; E03.2 Hypothyroidism due to medicaments and other exogenous substances; T46.2X5A Adverse effect of other antidysrhythmic drugs, initial encounter; Y92.89 Other specified places as the place of occurrence of the external cause; Z95.5 Presence of coronary angioplasty implant and graft; Z95.1 Presence of aortocoronary bypass graft; Z79.01 Long term (current) use of anticoagulants; Z87.891 Personal history of nicotine dependence
CPT/HCPCS: 36415; 71045; 80048; 80053; 80061; 81001; 82550; 82553; 83735; 83880; 84439; 84443; 84481; 84484; 85025; 93005; 93010; 96361; 96374; 96376; 99285; G0378; J1160; J2270; J3490; J7030

== ENCOUNTER → 2018-08-18 | Outpatient (CLI) | payer MEDICARE, OTHER ==
[2018-08-18 13:38] LABS: ALANINE AMINOTRANSFERASE 30 U/L (21-72); ALBUMIN 3.7 g/dL (3.5-5.0); ALKALINE PHOSPHATASE 90 U/L (38-126); ANION GAP 11 (5-19); ASPARTATE AMINO TRANSFERASE 17 U/L (17-59); BILIRUBIN,DIRECT 0.3 mg/dL (0.0-0.4); BILIRUBIN,TOTAL 0.5 mg/dL (0.2-1.3); BLOOD UREA NITROGEN 39 mg/dL (7-20); CALCIUM 9.3 mg/dL (8.4-10.2); CARBON DIOXIDE 19 mmol/L (22-30); CHLORIDE 104 mmol/L (98-107); GLUCOSE 115 mg/dL (75-110); SODIUM 133.6 mmol/L (137-145); TOTAL PROTEIN 6.7 g/dL (6.3-8.2)
[2018-08-18 15:02] LABS: POTASSIUM 6.7 mmol/L (3.6-5.0)
== END ==
LOC: OD 12:42
PROVIDERS: ATTEND Family Medicine
DX: E87.0 Hyperosmolality and hypernatremia (principal)
CPT/HCPCS: 36415; 80053

== ENCOUNTER 2018-11-09 17:46 | Emergency (ER) | payer MEDICARE, OTHER ==
[2018-11-09] MEDS ORDERED: ONDANSETRON HCL INJ/PF 4 MG/2 ML SDV IV ONE (18:09)
[2018-11-09] MEDS ORDERED: ONDANSETRON 4 MG TAB.RAPDIS PO ONE (18:10)
--- NOTE | 2018-11-09 18:12 | ER Document Report ---
ED Medical Screen (RME) - General Chief Complaint: Abdominal Pain Stated Complaint: ABDOMINAL PAIN Time Seen by Provider: 11/09/18 18:06 Primary Care Provider: REYNA GONZALEZ MD [Primary Care Provider] - Follow up as needed TRAVEL OUTSIDE OF THE [place] IN LAST 30 DAYS: No - HPI Notes: 11/09/18 18:10 Patient is an 83-year-old male with a history of A. fib, hypertension, pacemaker placement, ventral wall hernia who presents complaining of intermittent generalized abdominal pain that is been present intermittently today, but increased about an hour and a half ago. Patient states that he is nauseated and is having dry heaves. He is urinating normally and having normal bowel movements otherwise. No melena or hematochezia noted. Pain does not radiate. Patient states that when the pain hits his abdomen it will take his breath away, but he otherwise has no shortness of breath or dyspnea on exertion. Denies WILLARD, fever, neck pain, URI, CP, SOB, dysuria, back pain, or rash. I have treated and performed a rapid initial assessment of this patient. A comprehensive ED assessment and evaluation of the patient, analysis of test results and completion of medical decision making process will be conducted by additional ED providers. PHYSICAL EXAMINATION: GENERAL: Well-appearing, well-nourished and in no acute distress. A&Ox4. Answers questions appropriately. LUNGS: Breath sounds clear to auscultation bilaterally and equal. No wheezes rales or rhonchi. HEART: Regular rate and rhythm without murmurs, rubs, gallops. ABDOMEN: Soft, nondistended abdomen. No guarding, no rebound. Normal bowel sounds present. No CVA tenderness bilaterally. + generalized tenderness (cannot elicit thorough abd exam w/o bed, however). + ventral hernia noted that is reducible without erythema or firmness. - Related Data Allergies/Adverse Reactions: warfarin [From Coumadin] Allergy (Verified 09/10/17 13:01) Past Medical History - Social History Frequency of alcohol use: None Drug Abuse: None - Past Medical History Cardiac Medical History: Reports: Hx Atrial Fibrillation - Status post cardioversion about 5 days ago, Hx Coronary Artery Disease - Status post CABG about 13 years ago, Hx Heart Attack, Hx Hypertension Pulmonary Medical History: Denies: Hx Asthma, Hx COPD Neurological Medical History: Denies: Hx Seizures Endocrine Medical History: Denies: Hx Diabetes Mellitus Type 1, Hx Diabetes Mellitus Type 2, Hx Hyperthyroidism, Hx Hypothyroidism Renal/ Medical History: Denies: Hx Peritoneal Dialysis GI Medical History: Denies: Hx Cirrhosis, Hx Hepatitis Musculoskeltal Medical History: Denies Hx Arthritis, Denies Hx Gout Skin Medical History: Denies Hx Eczema, Denies Hx Psoriasis Infectious Medical History: Denies: Hx Hepatitis Past Surgical History: Reports: Hx Cardiac Catheterization, Hx Cardiac Surgery - 4 way bypass, Hx Coronary Artery Bypass Graft, Hx Coronary Stent, Hx Neurologic Surgery - sami holes, Hx Orthopedic Surgery - finger - Immunizations Hx Diphtheria, Pertussis, Tetanus Vaccination: No History of Influenza Vaccine for 01/2017 - 06/2017 Season: No Physical Exam - Vital signs Vitals: Temp Pulse Resp BP Pulse Ox 97.4 F 80 20 139/77 H 92 11/09/18 17:52 11/09/18 17:52 11/09/18 17:52 11/09/18 17:52 11/09/18 17:52 Course - Vital Signs Vital signs: Temp Pulse Resp BP Pulse Ox 97.4 F 84 20 139/77 H 97 11/09/18 17:54 11/09/18 17:54 11/09/18 17:54 11/09/18 17:54 11/09/18 17:54 Doctor's Discharge - Discharge Referrals: REYNA GONZALEZ MD [Primary Care Provider] - Follow up as needed
[2018-11-09 18:52] LABS: ALBUMIN 3.8 g/dL (3.5-5.0); ALKALINE PHOSPHATASE 101 U/L (38-126); ANION GAP 9 (5-19); ASPARTATE AMINO TRANSFERASE 18 U/L (17-59); BILIRUBIN,DIRECT 0.3 mg/dL (0.0-0.4); BILIRUBIN,TOTAL 1.3 mg/dL (0.2-1.3); BLOOD UREA NITROGEN 17 mg/dL (7-20); CALCIUM 9.2 mg/dL (8.4-10.2); CARBON DIOXIDE 24 mmol/L (22-30); CHLORIDE 100 mmol/L (98-107); GLUCOSE 125 mg/dL (75-110); POTASSIUM 5.1 mmol/L (3.6-5.0); TOTAL PROTEIN 6.7 g/dL (6.3-8.2)
[2018-11-09 18:59] LABS: ABSOLUTE BASOPHILS # (AUTO) 0.1 10^3/uL (0.0-0.2); ABSOLUTE EOSINOPHILS # (AUTO) 0.1 10^3/uL (0.0-0.6); ABSOLUTE LYMPHOCYTES (AUTO) 1.1 10^3/uL (0.5-4.7); ABSOLUTE MONOCYTES (AUTO) 0.7 10^3/uL (0.1-1.4); ABSOLUTE NEUT (AUTO) 5.3 10^3/uL (1.7-8.2); EOSINOPHILS % (AUTO) 1.6 % (0-6); HEMATOCRIT 34.5 % (37.9-51.0); HEMOGLOBIN 11.3 g/dL (13.5-17.0); LYMPHOCYTES % (AUTO) 15.3 % (13-45); MEAN CORPUSCULAR HEMOGLOBIN 30.1 pg (27.0-33.4); MEAN CORPUSCULAR HGB CONC 32.8 g/dL (32.0-36.0); MEAN CORPUSCULAR VOLUME 92 fl (80-97); PLATELET COUNT 239 10^3/uL (150-450); RED BLOOD COUNT 3.77 10^6/uL (4.35-5.55); RED CELL DISTRIBUTION WIDTH 14.8 % (11.5-14.0); SEGMENTED NEUTROPHILS % (AUTO) 73.1 % (42-78); TOTAL CELLS COUNTED % (AUTO) 100 %; WHITE BLOOD COUNT 7.3 10^3/uL (4.0-10.5)
[2018-11-09 19:13] LABS: APPEARANCE,URINE SLIGHTLY-CLOUDY; BILIRUBIN,URINE NEGATIVE (NEGATIVE); COLOR,URINE YELLOW; GLUCOSE, URINE NEGATIVE (NEGATIVE); KETONES,URINE NEGATIVE (NEGATIVE); LEUKOCYTE ESTERASE,URINE MODERATE (NEGATIVE); NITRITE,URINE NEGATIVE (NEGATIVE); PROTEIN,URINE NEGATIVE (NEGATIVE); URINE SPECIFIC GRAVITY 1.013
--- NOTE | 2018-11-09 19:32 | ER Document Report ---
ED General - General Chief Complaint: Abdominal Pain Stated Complaint: ABDOMINAL PAIN Time Seen by Provider: 11/09/18 18:06 Primary Care Provider: REYNA GONZALEZ MD [NO LOCAL MD] - Follow up as needed TRAVEL OUTSIDE OF THE [place] IN LAST 30 DAYS: No - HPI Patient complains to provider of: abdominal pain Notes: 11/09/18 18:10 Patient is an 83-year-old male with a history of A. fib, hypertension, pacemaker placement, ventral wall hernia who presents complaining of intermittent generalized abdominal pain that is been present intermittently today, but increased about an hour and a half ago. Patient states that he is nauseated and is having dry heaves. He is urinating normally and having normal bowel movements otherwise. No melena or hematochezia noted. Pain does not radiate. Patient states that when the pain hits his abdomen it will take his breath away, but he otherwise has no shortness of breath or dyspnea on exertion. Denies WILLARD, fever, neck pain, URI, CP, SOB, dysuria, back pain, or rash. Pain is 6/10 cramping in nature without radiation across his entire lower abdomen nothing makes it better or worse. Patient is actually pain-free at this time TRIAGE NOTE - Related Data Allergies/Adverse Reactions: warfarin [From Coumadin] Allergy (Verified 09/10/17 13:01) Past Medical History - Social History Smoking Status: Unknown if Ever Smoked Frequency of alcohol use: None Drug Abuse: None Family History: CAD. denies: DM, Malignancy Patient has suicidal ideation: No Patient has homicidal ideation: No - Past Medical History Cardiac Medical History: Reports: Hx Atrial Fibrillation - Status post cardioversion about 5 days ago, Hx Coronary Artery Disease - Status post CABG about 13 years ago, Hx Heart Attack, Hx Hypertension Pulmonary Medical History: Denies: Hx Asthma, Hx COPD Neurological Medical History: Denies: Hx Seizures Endocrine Medical History: Denies: Hx Diabetes Mellitus Type 1, Hx Diabetes Mellitus Type 2, Hx Hyperthyroidism, Hx Hypothyroidism Renal/ Medical History: Denies: Hx Peritoneal Dialysis GI Medical History: Denies: Hx Cirrhosis, Hx Hepatitis Musculoskeletal Medical History: Denies Hx Arthritis, Denies Hx Gout Skin Medical History: Denies Hx Eczema, Denies Hx Psoriasis Infectious Medical History: Denies: Hx Hepatitis Past Surgical History: Reports: Hx Cardiac Catheterization, Hx Cardiac Surgery - 4 way bypass, Hx Coronary Artery Bypass Graft, Hx Coronary Stent, Hx Neurologic Surgery - sami holes, Hx Orthopedic Surgery - finger - Immunizations Hx Diphtheria, Pertussis, Tetanus Vaccination: No Hx Pneumococcal Vaccination: 12/05/12 Review of Systems - Review of Systems Notes: REVIEW OF SYSTEMS: CONSTITUTIONAL: -fevers, -chills EENT: -eye pain, -difficulty swallowing, -nasal congestion CARDIOVASCULAR: -chest pain, -syncope. RESPIRATORY: -cough, -SOB GASTROINTESTINAL: + abdominal pain, +nausea, -vomiting, -diarrhea GENITOURINARY: -dysuria, -hematuria MUSCULOSKELETAL: -back pain, -neck pain SKIN: -rash or skin lesions. HEMATOLOGIC: -easy bruising or bleeding. LYMPHATIC: -swollen, enlarged glands. NEUROLOGICAL: -altered mental status or loss of consciousness, -headache, - neurologic symptoms PSYCHIATRIC: -anxiety, -depression. ALL OTHER SYSTEMS REVIEWED AND NEGATIVE. Physical Exam - Vital signs Vitals: Temp Pulse Resp BP Pulse Ox 97.4 F 80 20 139/77 H 92 11/09/18 17:52 11/09/18 17:52 11/09/18 17:52 11/09/18 17:52 11/09/18 17:52 - Notes Notes: PHYSICAL EXAMINATION: GENERAL: Well-appearing, well-nourished and in no acute distress. HEAD: Atraumatic, normocephalic. EYES: Pupils equal round and reactive to light, extraocular movements intact, sclera anicteric, conjunctiva are normal. ENT: nares patent, oropharynx clear without exudates. Moist mucous membranes. NECK: Normal range of motion, supple without lymphadenopathy LUNGS: Breath sounds clear to auscultation bilaterally and equal. No wheezes rales or rhonchi. HEART: Regular rate and rhythm without murmurs ABDOMEN: Soft, nontender, normoactive bowel sounds. No guarding, no rebound. No masses appreciated. EXTREMITIES: Normal range of motion, no pitting or edema. No cyanosis. NEUROLOGICAL: Cranial nerves grossly intact. Normal speech, normal gait. Normal sensory and motor exams. PSYCH: Normal mood, normal affect. SKIN: Warm, Dry, normal turgor, no rashes or lesions noted. Benign physical exam Course - Re-evaluation Re-evalutation: 11/09/18 19:54 Well-appearing 83-year-old male presents with symptoms of cramping lower abdominal pain intermittent in nature to be profoundly nauseous with dry heaving. Given Zofran prehospital feeling markedly improved. Nonfocal a bdominal exam. Patient concerned this may be something to do with his ventral hernia. 11/09/18 22:15 Patient's extensive lab work-up unremarkable. No leukocytosis or other gross abnormality. Patient's CAT scan abdomen pelvis with IV contrast shows no acute intra-abdominal process. Patient is symptom-free at this time. Believes it was just gas. Recommend discharge home follow-up PCP given strict return precautions anything should change please return - Vital Signs Vital signs: Temp Pulse Resp BP Pulse Ox 97.4 F 84 20 139/77 H 97 11/09/18 17:54 11/09/18 17:54 11/09/18 17:54 11/09/18 17:54 11/09/18 17:54 - Laboratory Result Diagrams: 11/09/18 18:50 11/09/18 18:24 Laboratory results interpreted by me: 11/09/18 11/09/18 11/09/18 18:24 18:50 18:50 RBC 3.77 L Hgb 11.3 L Hct 34.5 L RDW 14.8 H Sodium 133.4 L Potassium 5.1 H Glucose 125 H Urine Blood SMALL H Urine Urobilinogen 2.0 H Ur Leukocyte Esterase MODERATE H Discharge - Discharge Clinical Impression: Abdominal pain Qualifiers: Abdominal location: generalized Qualified Code(s): R10.84 - Generalized abdominal pain Condition: Stable Disposition: HOME, SELF-CARE Instructions: Abdominal Pain ([facility]) Referrals: REYNA GONZALEZ MD [NO LOCAL MD] - Follow up as needed
--- NOTE | 2018-11-09 22:04 | RADIOLOGY REPORT (SQ) ---
EXAM DESCRIPTION: CT ABDOMEN PELVIS WITH IV CONTRAST COMPLETED DATE/TME: 11/09/2018 19:52 CLINICAL HISTORY: 83 years, Male, abdominal pain COMPARISON: None. TECHNIQUE: 440 Images stored on PACS. All CT scanners at this facility use dose modulation, iterative reconstruction, and/or weight based dosing when appropriate to reduce radiation dose to as low as reasonably achievable (ALARA). [facility]: Dose Right [facility]: CareDose [facility]: Dose Right [facility]: Teradose 4D [facility]: [email or web address] LIMITATIONS: None. FINDINGS: Limited evaluation of the lung bases shows bilateral pleural effusions, greater on the right with adjacent atelectasis. Cardiomegaly with coronary artery calcification. Osseous structures are grossly intact. Motion artifact degrades image quality. The liver, spleen, adrenal glands, pancreas, kidneys are grossly unremarkable. The gallbladder is present. No gross evidence for bowel obstruction. Normal appendix. No free air or free fluid. Moderate atheromatous change. Infrarenal abdominal aorta measures 2.3 x 2.5 cm. Sigmoid diverticulosis. No CT evidence for diverticulitis. IMPRESSION: Cardiomegaly. Bilateral pleural effusions, greater on the right. Sigmoid diverticulosis. No CT evidence for diverticulitis. Mild aneurysmal dilatation of the infrarenal abdominal aorta measuring 2.3 x 2.5 cm. Recommend follow-up as per below. For management of fusiform aneurysmal abdominal aortas: <2.6 cm aorta, no follow-up is recommended. 2.6-2.9 cm aorta, recommend follow-up every 5 years for aortas meeting the criteria for AAA (>1.5 x proximal normal segment; no f/u if < 1.5 x proximal normal segment; no f/u for aortas < 2.6 cm). 3.0-3.4 cm AAA, recommend follow-up every 3 years. 3.5-3.9 cm AAA, recommend follow-up every 2 years. 4.0-4.4 cm AAA, recommend follow-up every 12 months and recommend vascular consultation. 4.5-5.4 cm AAA, recommend follow-up every 6 months and recommend vascular consultation. >5.5 cm AAA, recommend referral to vascular specialist. For management of saccular abdominal aortic aneurysms of any size, recommend vascular consultation. Note: for AAA enlargement of >0.5 cm in 6 months or >1 cm in 1 year, recommend vascular consultation. References: J Am Scooby Radiol 2013; 10(10):789-794; J Vasc Surg. 2018; 67:2-77 TECHNICAL DOCUMENTATION: Quality ID # [id number]: Final reports with documentation of one or more dose reduction techniques (e.g., Automated exposure control, adjustment of the mA and/or kV according to patient size, use of iterative reconstruction technique) copyright 2011 [employer]- All Rights Reserved
[2018-11-09 22:26] VITALS: BP 130/74
== END 2018-11-09 22:26 | disposition home or self-care (01) ==
LOC: ER 17:46
DX: R10.84 Generalized abdominal pain (principal); R11.0 Nausea; I25.10 Atherosclerotic heart disease of native coronary artery without angina pectoris; I10 Essential (primary) hypertension; Z95.1 Presence of aortocoronary bypass graft; Z88.8 Allergy status to other drugs, medicaments and biological substances
CPT/HCPCS: 99284; 96374; 36415; 83690; 85025; 80053; 81001; 74177; A9270; S0119